=== PATIENT | female | born 1945 | race Caucasian/White ===

== ENCOUNTER 2017-09-13 05:19 | Observation (INO) | payer MEDICARE, MEDICAID ==
[2017-09-13 05:56] LABS: Bilirubin Negative (Negative); Blood, Urine Large (Negative); Glucose, Urine (Dipstick) >=1000 mg/dL (Negative); Ketone, Urine > or equal to 80 mg/dL (Negative); Nitrite Positive (Negative); Protein, Urine (Dipstick) 30 mg/dL (Neg-Trace); Urobilinogen 0.2 mg/dL (0.2-1.0)
[2017-09-13 05:59] LABS: Bacteria/HPF 2+ HPF (None Seen); Hyaline Casts/LPF 0-3 HYALINE CAST LPF (0-3 Hyaline); Squamous Epithelial 0-3 HPF (0-3)
[2017-09-13 06:06] LABS: Yeast-All Forms None Seen HPF (None Seen)
[2017-09-13 06:11] LABS: #Lymphocytes 0.9 thou/uL (1.20-3.40); #Monocytes 0.6 thou/uL (0.11-0.59); #Neutrophils 7.3 thou/uL (1.40-6.50); %Basophils 0.3 % (0.0-1.0); %Eosinophils 0.5 % (0.0-10.0); %Lymphocytes 10.5 % (21.0-51.0); %Monocytes 6.9 % (0.0-10.0); Mean Platelet Volume 7.7 fL (7.4-10.4); Red Blood Cell (RBC) Count 4.71 mill/uL (4.20-5.40); White Blood Cell (WBC) Count 8.9 thou/uL (4.8-10.8)
[2017-09-13] MEDS ORDERED: Ondansetron HCl/PF 4 MG/2 ML Vial ONE ×2 (06:30→14:12)
[2017-09-13 06:34] LABS: ALT (SGPT) 20 U/L (8-55); AST (SGOT) 18 U/L (5-34); Alkaline Phosphatase 100 U/L (40-150); Anion Gap 20 mmol/L (10-20); BUN (Urea Nitrogen) 5 mg/dL (9.8-20.1); Bilirubin, Total 1.4 mg/dL (0.2-1.2); Calc. Creatinine Clearance 0 mL/min (70-130); Calcium 9.2 mg/dL (7.8-10.44); Carbon Dioxide 20 mmol/L (23-31); Chloride 98 mmol/L (98-107); Estimated GFR-MDRD 69; Globulin 3.5 g/dL (2.4-3.5); Protein, Total 7.1 g/dL (6.0-8.3)
[2017-09-13] MEDS ORDERED: MEROPENEM 1 GM/50 ML 1 GM in Premix Bag 1 BAG IVPB SCH ×2 (06:45→15:00)
[2017-09-13] MEDS ORDERED: Ketorolac Tromethamine 30 MG/ML VIAL IVP PRN (08:24)
[2017-09-13] MEDS ORDERED: Acetaminophen 1,000 MG in Premix Bag 1 BAG IVPB PRN (08:25)
[2017-09-13] MEDS ORDERED: Ondansetron HCl/PF 4 MG/2 ML Vial IVP PRN ×2 (08:28→13:00)
[2017-09-13] MEDS ORDERED: Ondansetron ODT 4 MG TAB SL PRN (08:28)
[2017-09-13] MEDS ORDERED: Acetaminophen 325 MG TAB PO PRN (08:28)
[2017-09-13] MEDS ORDERED: Dextrose 50% Abboject 50 ML SYRINGE IVP PRN (08:29)
[2017-09-13] MEDS ORDERED: Dextrose 5% in Water 1,000 ML IV PRN (08:29)
[2017-09-13] MEDS ORDERED: Insulin Regular 300 UNITS/3 ML VIAL SC PRN (08:29)
[2017-09-13] MEDS ORDERED: 1/2 NS w/KCL 20 mEq 1,000 ML IV SCH (08:30)
[2017-09-13 09:48] VITALS: BMI 26.4
[2017-09-13] MEDS ORDERED: Lidocaine 2% Jelly 5 ML TUBE ONE (11:14)
[2017-09-13] MEDS ORDERED: Bupivacaine/Epinephrine 0.25% 30 ML VIAL ONE (11:14)
[2017-09-13] MEDS ORDERED: Fentanyl 100 MCG/2 ML VIAL ONE (11:47)
[2017-09-13] MEDS ORDERED: Lidocaine 1% w/Epinephrine 1:200K 30 ML VIAL ONE (12:31)
[2017-09-13] MEDS ORDERED: Bupivacaine PF 0.5% 30 ML VIAL ONE (12:31)
[2017-09-13] MEDS ORDERED: Promethazine HCl 25 MG/ML VIAL IM PRN (13:00)
[2017-09-13] MEDS ORDERED: Promethazine HCl 25 MG/ML VIAL SLOW IVP PRN (13:00)
--- NOTE | 2017-09-13 13:09 | HP ---
HISTORY OF PRESENT ILLNESS: Damaris Waller is a 71-year-old female who lives in [facility]. She is independently functional and does drive and she ambulates independently. She is wido wed. Patient self-diagnosed urolithiasis experiencing left flank pain. There is a family history fo r urolithiasis. She presents to the emergency room for evaluation and incident was noted to have a p erirectal abscess. She has never had such problems before. She has not had a colonoscopy for more t parrish 20 years. She denies any colon problems or change in bowel habits, blood in stools. She is admi tted for treatment of her perirectal abscess. ALLERGIES: The patient has multiple allergies, LIDOCAINE increased her heart rate, SULFA, results in rash, VANCOMYCIN decreased hearing. She lists acetaminophen as an allergy, but it resulted in nause a. She lists ampicillin which caused some facial swelling and she has avoided this. TOBACCO: None. ALCOHOL: None. MEDICATIONS: Phenergan p.r.n., insulin 10 units subcu daily, atenolol 25 mg daily. PAST MEDICAL HISTORY: Hemochromatosis, hiatal hernia, hypertension, diabetes mellitus type 2. PAST SURGICAL HISTORY: Total abdominal hysterectomy without oophorectomy, bladder slings x3, incisio nal hernias x3. She describes as a weakened rectus muscle [place], appendectomy in the past. REVIEW OF SYSTEMS: Ten point noncontributory, otherwise. PHYSICAL EXAMINATION: VITAL SIGNS: 5 foot 244 pounds, 98.2, 97, 130/73. HEENT: Unremarkable. LUNGS: Clear to auscultation: CARDIAC: Rhythm without murmur or gallop. ABDOMEN: Obese, soft, nontender. EXTREMITIES: Unremarkable. She has a perirectal abscess on the right, it is tender. There is sligh t redness. LABORATORY DATA: White count 8.9, hemoglobin 15. Basic metabolic profile was unremarkable. BUN 5, creatinine 0.82, glucose 372. ASSESSMENT AND PLAN: 1. Perirectal abscess. We will plan incision and drainage today. She can be discharged home postop eratively. She can follow up in the office on 09/18/2017 at 10:00 a.m. Tomorrow, she will move her packing from the wound and warm to hot baths and does not have to repack and she will keep a Kotex pa d and gauze dressing to control the drainage. She will wash it daily with soap and water and after e ach bowel movement. 2. She reports subjective urolithiasis, although there is no image to support this. Urinalysis reve als nitrites positive, bacteria 2+, cultures not submitted. We will plan discharge home on quinolone and Flagyl for 7 days due to her reported PENICILLIN allergy . She has received Ofirmev this hospitalization and Tylenol without incident and her listed allergy of acetaminophen is not a true allergy.
[2017-09-13] MEDS ORDERED: Polyethylene Glycol 3350 17 GM Packet PO PRN (13:28)
[2017-09-13] MEDS ORDERED: Acetaminophen 500 MG TAB PO PRN (13:28)
[2017-09-13] MEDS ORDERED: Ibuprofen 600 MG TAB PO PRN (13:28)
[2017-09-13] MEDS ORDERED: traMADol HCl 50 MG TAB PO PRN ×2 (13:28)
[2017-09-13 13:31] LABS: Bilirubin Negative (Negative); Blood, Urine Large (Negative); Glucose, Urine (Dipstick) >=1000 mg/dL (Negative); Ketone, Urine > or equal to 80 mg/dL (Negative); Nitrite Negative (Negative); Protein, Urine (Dipstick) 30 mg/dL (Neg-Trace); Urobilinogen 0.2 mg/dL (0.2-1.0)
[2017-09-13 13:33] LABS: Bacteria/HPF None Seen HPF (None Seen); Hyaline Casts/LPF 0-3 HYALINE CAST LPF (0-3 Hyaline); RBC/HPF GREATER THAN 50-TNTC HPF (0-3); Squamous Epithelial 0-3 HPF (0-3)
[2017-09-13 13:54] VITALS: TEMP 98.7
[2017-09-13] MEDS ORDERED: Propofol 200 MG/20 ML VIAL ONE (14:12)
[2017-09-13] MEDS ORDERED: Glycopyrrolate 0.2 MG/ML 5 ML SYRINGE ONE (14:12)
[2017-09-13] MEDS ORDERED: metroNIDAZOLE 500 MG TAB PO SCH (15:00)
--- NOTE | 2017-09-13 15:35 | OP ---
DATE OF PROCEDURE: 09/13/2017 PREOPERATIVE DIAGNOSES: Right perirectal abscess, diabetes mellitus type 2, abnormal urinalysis sugg esting urinary tract infection. Urinalysis obtained in the emergency room. Urine culture is not sub mitted. POSTOPERATIVE DIAGNOSES: Right perirectal abscess, diabetes mellitus type 2, abnormal urinalysis sug gesting urinary tract infection. Urinalysis obtained in the emergency room. Urine culture is not acosta bmitted. PROCEDURE: Incision and drainage of right perirectal abscess with in and out straight cath. Urine f or C&S submitted from the OR. SURGEON: Dr. Robson Bailey. ANESTHESIA: General. Local 0.5% Marcaine without epinephrine 30 mL, mixed with 1% Xylocaine with ep inephrine 30 mL, 20 mL mixture used. PROCEDURE IN DETAIL: Patient was taken to the operating room where under general anesthesia in the d orsal lithotomy position, perianal area was prepared with Betadine. In and out catheterization of th e bladder performed and urine culture submitted. Local anesthetic infiltrated into skin and subcutan eous tissue about the right perirectal abscess and incision and drainage performed, evacuating purule nt material and debriding skin and soft tissues. Wound packed open and gauze dressing applied, secur ed with Medipore. Patient tolerated the procedure well without complications, transferred to the rec overy room in stable condition. She will be discharged home today and we will follow up in my office this week.
[2017-09-13 16:24] VITALS: BP 127/70
--- NOTE | 2017-09-13 17:24 | DIS ---
DATE OF ADMISSION: 09/12/2017 DATE OF DISCHARGE: 09/13/2017 DISCHARGE DIAGNOSES: Right perirectal abscess, urinary tract infection, urine culture straight rosie terization pending, multiple allergies, diabetes mellitus type 2, obesity, metabolic syndrome, hypert ension, hemochromatosis, cystocele, rectocele. HOSPITAL COURSE: The patient was seen in the emergency room for left flank pain, incidentally noted to have a perirectal abscess. She was admitted for that with intravenous antibiotics. She was taken to the operating room where incision and drainage performed and wound packed open. Urine culture ob tained straight catheterization intraoperatively. Postoperatively, she is discharged home with instr uctions to remove the packing tomorrow morning, Friday and a warm to hot bath and wash the wound with soap and water daily and after bowel movements. She does not need to repack it. She will use a Rayo ex pad or gauze dressings for any drainage. She has an appointment to see me later in the week. She is sent home to resume her home medications, in addition to, take [id number] Tylenol and Motri n for discomfort. She was given Ultram 20 with 2 refills for breakthrough pain. She was sent home w olu Cipro and Flagyl for 5 days. We will check urine cultures in the office.
[2017-09-13] MEDS ORDERED: Ciprofloxacin 500 MG TAB PO SCH (20:00)
[2017-09-14] MEDS ORDERED: Insulin Regular 300 UNITS/3 ML VIAL SC SCH (09:00)
[2017-09-14] MEDS ORDERED: Atenolol 25 MG TAB PO SCH (09:00)
== END 2017-09-13 19:06 | disposition home or self-care (01) ==
LOC: ERS 05:19 → SURG A 08:07
PROVIDERS: ADMIT Specialist; ATTEND Specialist
PROC: 0D9P0ZZ Drainage of Rectum, Open Approach (ICD-10-PCS; principal; 2017-09-13)
PROC: 0T9B70Z Drainage of Bladder with Drainage Device, Via Natural or Artificial Opening (ICD-10-PCS; 2017-09-13)
DX: K61.1 Rectal abscess (principal); N39.0 Urinary tract infection, site not specified; E11.9 Type 2 diabetes mellitus without complications; I10 Essential (primary) hypertension; E83.119 Hemochromatosis, unspecified; E88.81 Metabolic syndrome and other insulin resistance; N81.10 Cystocele, unspecified; N81.6 Rectocele; E66.9 Obesity, unspecified; Z68.26 Body mass index [BMI] 26.0-26.9, adult; Z88.2 Allergy status to sulfonamides; Z88.0 Allergy status to penicillin; Z88.8 Allergy status to other drugs, medicaments and biological substances; Z88.1 Allergy status to other antibiotic agents; Z88.5 Allergy status to narcotic agent; Z91.041 Radiographic dye allergy status; Z79.4 Long term (current) use of insulin; Z79.899 Other long term (current) drug therapy; Z90.710 Acquired absence of both cervix and uterus; Z98.890 Other specified postprocedural states
CPT/HCPCS: 36415; 36416; 80053; 81003; 81015; 85025; 87040; 87077; 87086; 87186; 93005; 96361; 96365; 96375; J0696; J2405; J2704; J3010; S0020

== ENCOUNTER 2017-10-31 09:11 | Outpatient (CLI) | payer MEDICARE, MEDICAID ==
[2017-10-31 10:01] LABS: Anion Gap 11 mmol/L (10-20); BUN (Urea Nitrogen) 11 mg/dL (9.8-20.1); Calc. Creatinine Clearance 0 mL/min (70-130); Calcium 10.2 mg/dL (7.8-10.44); Carbon Dioxide 30 mmol/L (23-31); Chloride 95 mmol/L (98-107); Estimated GFR-MDRD 63; Glucose 470 mg/dL (83-110); Potassium 4.3 mmol/L (3.5-5.1); Sodium 132 mmol/L (136-145)
--- NOTE | 2017-10-31 10:52 | CT ---
CT ABDOMEN AND PELVIS WITHOUT CONTRAST: HISTORY: Bilateral flank pain, hematuria, UTIs. FINDINGS: Absence of oral and IV contrast reduces the sensitivity of the exam, particularly for evaluation of s olid organs involved. The lung bases are clear. A moderate-sized hiatal hernia is present. There is increased attenuation of the liver compared to the spleen measuring 79 Hounsfield units. No calcified gallstones are seen . No free air or free fluid is noted in the abdomen or pelvis. There is a 3 mm calculus in the central portions of the inferior aspect of the left kidney. No calcu li are seen in the right kidney, either ureter, or the urinary bladder. No hydroureteral nephrosis i s seen on either side. There is an 8 mm cyst in the superior pole of the right kidney. There is thi ckening of the wall of the urinary bladder. The right-sided bladder diverticulum is present. There are postop changes of appendectomy and hysterectomy. There are vascular calcifications without evidence of aneurysmal dilatation of the abdominal aorta. There are degenerative changes in the spi ne. IMPRESSION: 1. Nonobstructing left renal calculi. 2. Right renal cyst. 3. Urinary bladder wall thickening and urinary bladder diverticulum. 4. Diffusely increased attenuation of the liver. Differential diagnosis includes deposition of meta ls (iron, copper), glycogen storage disorders, medications such as Amiodarone. POS: DANIEL
== END 2017-10-31 09:12 | disposition home or self-care (01) ==
LOC: CT 09:11
PROVIDERS: ATTEND Urology
DX: Z87.440 Personal history of urinary (tract) infections (principal); Z84.1 Family history of disorders of kidney and ureter; N20.0 Calculus of kidney; N28.1 Cyst of kidney, acquired; N32.3 Diverticulum of bladder; N32.89 Other specified disorders of bladder; K76.89 Other specified diseases of liver
CPT/HCPCS: 74176; 80048

== ENCOUNTER 2019-03-22 09:03 | Outpatient (CLI) | payer MEDICARE, MEDICAID ==
--- NOTE | 2019-03-22 12:02 | RAD ---
PA AND LATERAL VIEWS CHEST: HISTORY: Weight loss. FINDINGS: The heart size is normal. The aorta is tortuous. There is a moderate-sized hiatal hernia. The lung s are expanded without lobar consolidation, pneumothoraces, or pleural effusions. Bones are osteopen ic. There are degenerative changes in the spine. IMPRESSION: 1. No radiographic evidence of acute cardiopulmonary process. 2. Hiatal hernia. POS: OFF
== END 2019-03-22 09:04 | disposition home or self-care (01) ==
LOC: CT 09:03
PROVIDERS: ATTEND Internal Medicine Infectious Disease
DX: M25.50 Pain in unspecified joint (principal); R63.4 Abnormal weight loss; R81 Glycosuria; R80.8 Other proteinuria; Z87.440 Personal history of urinary (tract) infections; K44.9 Diaphragmatic hernia without obstruction or gangrene
CPT/HCPCS: 36415; 71046; 80053; 81001; 82607; 82746; 83520; 84439; 84443; 86038; 86200; 86225; 86803; 87077; 87086; 87186

== ENCOUNTER 2021-02-08 04:26 | Inpatient (IN) | payer MEDICARE, MEDICAID ==
[2021-02-08] MEDS ORDERED: Promethazine HCl 25 MG/ML VIAL ONE (05:11)
[2021-02-08 05:39] LABS: #Eosinphils 0.1 thou/uL (0.0-0.7); #Lymphocytes 0.8 thou/uL (1.20-3.40); #Neutrophils 6.6 thou/uL (1.40-6.50); %Basophils 0.4 % (0.0-1.0); %Eosinophils 1.3 % (0.0-10.0); %Lymphocytes 9.4 % (21.0-51.0); %Monocytes 11.2 % (0.0-10.0); %Neutrophils 77.6 % (42.0-75.0); Hemoglobin 11.3 g/dL (12.0-16.0); Mean Corpuscular HGB CONC 34.7 g/dL (32.0-36.0); Mean Corpuscular Hemoglobin 31.3 pg (27.0-31.0); Mean Corpuscular Volume 90.4 fL (78.0-98.0); Mean Platelet Volume 7.2 fL (7.4-10.4); Platelet Count 214 thou/uL (130-400); RBC Distribution Width 11.6 % (11.5-14.5); Red Blood Cell (RBC) Count 3.61 mill/uL (4.20-5.40); White Blood Cell (WBC) Count 8.5 thou/uL (4.8-10.8)
[2021-02-08 05:59] LABS: Acetaminophen Less than 6.0 mcg/mL (10.0-30.0); Alcohol Less than 10 mg/dL (Less than 10); Salicylate Less than 8.0 mg/dL (15.0-30.0)
[2021-02-08 06:01] LABS: ALT (SGPT) 8 U/L (8-55); AST (SGOT) 11 U/L (5-34); Albumin 2.9 g/dL (3.4-4.8); Alkaline Phosphatase 89 U/L (40-110); Anion Gap 18 mmol/L (10-20); BUN (Urea Nitrogen) 62 mg/dL (9.8-20.1); Bilirubin, Total 0.7 mg/dL (0.2-1.2); Calc. Creatinine Clearance 0 mL/min (70-130); Calcium 8.6 mg/dL (7.8-10.44); Carbon Dioxide 17 mmol/L (23-31); Chloride 99 mmol/L (98-107); Globulin 3.2 g/dL (2.4-3.5); Glucose 288 mg/dL (83-110); Lipase 16 U/L (8-78); Potassium 4.2 mmol/L (3.5-5.1); Protein, Total 6.1 g/dL (5.8-8.1); Sodium 130 mmol/L (136-145)
[2021-02-08 06:18] LABS: Bacteria/HPF 4+ HPF (None Seen); Bilirubin Negative (Negative); Blood, Urine 2+ (Negative); Clarity Extra Turbid (Clear); Glucose, Urine (Dipstick) 30 mg/dL (Negative); Ketone, Urine 10 mg/dL (Negative); Leukocyte 500 Leu/uL (Negative); Nitrite Negative (Negative); Protein, Urine (Dipstick) 50 mg/dL (Neg-Trace); RBC/HPF None Seen HPF (0-3); Specific Gravity, Urine 1.013 (1.002-1.036); Squamous Epithelial None Seen HPF (0-3); Urobilinogen Normal mg/dL (Less than 2); WBC/HPF 21-50 HPF (0-3); Yeast-Budding 2+ HPF (None Seen)
[2021-02-08 06:20] LABS: Amphetamine Not Detected (NotDetected); Barbiturates Screen Not Detected (NotDetected); Benzodiazepine Screen Not Detected (NotDetected); Cocaine Metabolite Screen Not Detected (NotDetected); Medtox Control Line Valid? VALID (VALID); Medtox Reader # READER 4; Methadone Not Detected (NotDetected); Methamphetamine Not Detected (NotDetected); Opiate Screen Not Detected (NotDetected); Oxycodone Screen Not Detected (NotDetected); Phencyclidine (PCP) Not Detected (NotDetected); THC/Cannabinoid Screen Not Detected (NotDetected); Tricyclic Screen Not Detected (NotDetected)
[2021-02-08] MEDS ORDERED: cefTRIAXone\\ROCEPHIN 2 GM VIAL ONE (06:31)
[2021-02-08 06:59] LABS: Actual Bicarbonate (HCO3v) 18 mEq/L (22-28); Analyzer IN Cardio ER; Calcium, Ionized (venous) 1.16 mmol/L (1.16-1.32); Chloride (VBG) 98 mmol/L (98-106); Hemoglobin (Hb) 12.2 g/dL (11.7-16.1); Potassium (VBG) 4.82 mmol/L (3.70-5.30); Sodium 128.8 mmol/L (133-146); pH (venous) 7.39 (7.32-7.43)
[2021-02-08] MEDS ORDERED: Dextrose 50% Abboject 50 ML SYRINGE SLOW IVP PRN (08:49)
[2021-02-08] MEDS ORDERED: Dextrose 5% in Water 1,000 ML IV PRN (08:49)
[2021-02-08] MEDS ORDERED: HumaLOG 300 UNITS/3 ML VIAL SC PRN (08:54)
[2021-02-08 09:16] LABS: Hemoglobin A1c 13.3 % (4.0-6.0)
[2021-02-08 11:53] VITALS: BMI 20.9
[2021-02-08] MEDS ORDERED: Acetaminophen 325 MG TAB PO PRN (12:05)
[2021-02-08] MEDS: Promethazine 25 MG TAB PO PRN ×2 (12:27→18:13)
[2021-02-08] MEDS: Enoxaparin Sodium 30 MG/0.3 ML SYRINGE SC SCH (12:30)
[2021-02-08] MEDS: Insulin Regular 300 UNITS/3 ML VIAL SC PRN ×3 (12:47→22:36)
[2021-02-08] MEDS: Gabapentin 100 MG CAP PO SCH (15:49)
[2021-02-08] MEDS ORDERED: Polyethylene Glycol 3350 17 GM Packet PO SCH (21:00)
[2021-02-09 01:48] LABS: SARS-CoV-2 PCR by NAA Not Detected (NotDetected)
[2021-02-09] MEDS: Promethazine 25 MG TAB PO PRN (05:44)
[2021-02-09 05:49] LABS: Anion Gap 22 mmol/L (10-20); BUN (Urea Nitrogen) 57 mg/dL (9.8-20.1); Calc. Creatinine Clearance 33 mL/min (70-130); Calcium 9.5 mg/dL (7.8-10.44); Carbon Dioxide 13 mmol/L (23-31); Chloride 105 mmol/L (98-107); Glucose 366 mg/dL (83-110); Potassium 4.9 mmol/L (3.5-5.1); Sodium 135 mmol/L (136-145)
[2021-02-09] MEDS: Ondansetron PF 4 MG/2 ML Vial IVP PRN ×3 (06:30→18:16)
[2021-02-09] MEDS: Insulin Regular 300 UNITS/3 ML VIAL SC PRN ×4 (06:38→21:06)
[2021-02-09] MEDS ORDERED: Promethazine 25 MG TAB PO PRN (08:09)
[2021-02-09] MEDS: Enoxaparin Sodium 30 MG/0.3 ML SYRINGE SC SCH (09:31)
[2021-02-09] MEDS: Gabapentin 100 MG CAP PO SCH ×2 (09:35→21:55)
[2021-02-09] MEDS: Aspirin 81 mg Enteric Coated Tablet PO SCH (09:37)
[2021-02-09] MEDS: Lantus 1000 UNITS/10 ML VIAL SC SCH (12:30)
[2021-02-09] MEDS ORDERED: Promethazine HCl 25 MG/ML VIAL IM PRN (13:38)
[2021-02-09] MEDS: Promethazine HCl 12.5 MG in Sodium Chloride 0.9% 50 ML IVPB PRN ×2 (14:46→20:56)
[2021-02-09] MEDS: Pantoprazole 40 MG VIAL IVP SCH (21:54)
[2021-02-09] MEDS: Polyethylene Glycol 3350 17 GM Packet PO SCH ×2 (21:57→22:12)
[2021-02-09] MEDS ORDERED: Dextrose 5% in Water 1,000 ML IV PRN (23:36)
[2021-02-09] MEDS ORDERED: Dextrose 50% Abboject 50 ML SYRINGE SLOW IVP PRN (23:36)
[2021-02-10 00:08] LABS: Actual Bicarbonate (HCO3a) 19.5 mEq/L (22-28); Base Excess (BEa) -3.7 mEq/L (-2.0 to +3.0); CO2 Tension 29.9 mmHg (35.0-45.0); Calcium, Ionized (arterial) 1.28 mmol/L (1.12-1.30); Carboxyhemoglobin (COHb) 0.3 gm% (0.0-3.0); Hemoglobin (Hb) 11.6 g/dL (12.0-16.0); O2 Tension (PaO2), arterial 93.2 mmHg (> 70.0); Potassium - ABG Lab 4.16 mmol/L (3.70-5.30); pH, Arterial 7.43 (7.35-7.45)
[2021-02-10 00:13] LABS: ALV-art Gradient 19.155 mmHg (0-20); Puncture Site LRA
[2021-02-10 00:30] LABS: ALT (SGPT) Less than 7 U/L (8-55); AST (SGOT) 10 U/L (5-34); Albumin 2.8 g/dL (3.4-4.8); Alkaline Phosphatase 85 U/L (40-110); Anion Gap 15 mmol/L (10-20); BUN (Urea Nitrogen) 72 mg/dL (9.8-20.1); Bilirubin, Total 0.4 mg/dL (0.2-1.2); Calc. Creatinine Clearance 19 mL/min (70-130); Calcium 9.4 mg/dL (7.8-10.44); Carbon Dioxide 18 mmol/L (23-31); Chloride 107 mmol/L (98-107); Globulin 3.6 g/dL (2.4-3.5); Glucose 268 mg/dL (83-110); Potassium 4.3 mmol/L (3.5-5.1); Protein, Total 6.4 g/dL (5.8-8.1); Sodium 136 mmol/L (136-145)
[2021-02-10] MEDS ORDERED: HumaLOG 300 UNITS/3 ML VIAL SC PRN (00:30)
[2021-02-10] MEDS: Insulin Regular 300 UNITS/3 ML VIAL SC PRN ×3 (01:08→21:24)
[2021-02-10 06:17] LABS: Anion Gap 14 mmol/L (10-20); BUN (Urea Nitrogen) 68 mg/dL (9.8-20.1); Calc. Creatinine Clearance 18 mL/min (70-130); Calcium 9.8 mg/dL (7.8-10.44); Carbon Dioxide 20 mmol/L (23-31); Chloride 106 mmol/L (98-107); Glucose 193 mg/dL (83-110); Iron 31 ug/dL (50-170); Iron Binding Capacity, Total 158 mcg/dL (265-497); Potassium 3.7 mmol/L (3.5-5.1); Sodium 136 mmol/L (136-145)
[2021-02-10] MEDS: Sodium Chloride 0.9% (PF) 10 ML VIAL FS PRN (09:27)
[2021-02-10] MEDS: Pantoprazole 40 MG VIAL IVP SCH ×2 (09:27→21:21)
[2021-02-10] MEDS: Lantus 1000 UNITS/10 ML VIAL SC SCH (09:34)
[2021-02-10] MEDS: Aspirin 81 mg Enteric Coated Tablet PO SCH ×2 (09:34→13:02)
[2021-02-10] MEDS ORDERED: Lactated Ringer's 500 ML IV SCH (10:45)
[2021-02-10] MEDS ORDERED: PROPOFOL 200 MG/20 ML VIAL ONE (11:41)
[2021-02-10] MEDS: Gabapentin 100 MG CAP PO SCH ×2 (13:01→21:21)
[2021-02-10] MEDS: Lactated Ringer's 1,000 ML IV SCH ×2 (13:08)
[2021-02-10] MEDS: Polyethylene Glycol 3350 17 GM Packet PO SCH (21:23)
[2021-02-11] MEDS: Ondansetron PF 4 MG/2 ML Vial IVP PRN ×2 (04:17→19:55)
[2021-02-11] MEDS: Insulin Regular 300 UNITS/3 ML VIAL SC PRN ×5 (06:34→20:05)
[2021-02-11 06:43] LABS: Anion Gap 13 mmol/L (10-20); BUN (Urea Nitrogen) 36 mg/dL (9.8-20.1); Calc. Creatinine Clearance 49 mL/min (70-130); Calcium 9.2 mg/dL (7.8-10.44); Carbon Dioxide 22 mmol/L (23-31); Chloride 109 mmol/L (98-107); Glucose 287 mg/dL (83-110); Potassium 4.1 mmol/L (3.5-5.1); Sodium 140 mmol/L (136-145)
[2021-02-11] MEDS: Gabapentin 100 MG CAP PO SCH ×3 (09:09→20:02)
[2021-02-11] MEDS: Sodium Chloride 0.9% (PF) 10 ML VIAL FS PRN (09:09)
[2021-02-11] MEDS: Pantoprazole 40 MG VIAL IVP SCH ×2 (09:09→19:56)
[2021-02-11] MEDS: Aspirin 81 mg Enteric Coated Tablet PO SCH (09:11)
[2021-02-11] MEDS: Lantus 1000 UNITS/10 ML VIAL SC SCH (09:12)
[2021-02-11] MEDS: Enoxaparin Sodium 30 MG/0.3 ML SYRINGE SC SCH (09:24)
[2021-02-11] MEDS ORDERED: Magnesium Citrate 300 ML BOT PO SCH (12:30)
[2021-02-11] MEDS ORDERED: Polyethylene Glycol 3350 17 GM Packet PO SCH (12:30)
[2021-02-11] MEDS: Polyethylene Glycol 3350 17 GM Packet PO SCH (19:55)
[2021-02-12] MEDS: Insulin Regular 300 UNITS/3 ML VIAL SC PRN ×3 (06:31→21:35)
[2021-02-12 07:18] LABS: Anion Gap 11 mmol/L (10-20); BUN (Urea Nitrogen) 20 mg/dL (9.8-20.1); Calc. Creatinine Clearance 57 mL/min (70-130); Calcium 8.5 mg/dL (7.8-10.44); Carbon Dioxide 27 mmol/L (23-31); Chloride 104 mmol/L (98-107); Glucose 329 mg/dL (83-110); Potassium 4.6 mmol/L (3.5-5.1); Sodium 137 mmol/L (136-145)
[2021-02-12] MEDS: Gabapentin 100 MG CAP PO SCH ×3 (08:57→21:34)
[2021-02-12] MEDS: Aspirin 81 mg Enteric Coated Tablet PO SCH (08:57)
[2021-02-12] MEDS: Enoxaparin Sodium 30 MG/0.3 ML SYRINGE SC SCH (08:59)
[2021-02-12] MEDS: Polyethylene Glycol 3350 17 GM Packet PO SCH ×2 (08:59→21:35)
[2021-02-12] MEDS ORDERED: Lantus 1000 UNITS/10 ML VIAL SC SCH (09:00)
[2021-02-13] MEDS: Gabapentin 100 MG CAP PO SCH (05:55)
[2021-02-13] MEDS: Insulin Regular 300 UNITS/3 ML VIAL SC PRN ×3 (05:56→20:22)
[2021-02-13 07:12] LABS: Anion Gap 11 mmol/L (10-20); BUN (Urea Nitrogen) 10 mg/dL (9.8-20.1); Calc. Creatinine Clearance 58 mL/min (70-130); Calcium 8.5 mg/dL (7.8-10.44); Carbon Dioxide 26 mmol/L (23-31); Chloride 101 mmol/L (98-107); Glucose 298 mg/dL (83-110); Potassium 4.1 mmol/L (3.5-5.1); Sodium 134 mmol/L (136-145)
[2021-02-13] MEDS ORDERED: Enoxaparin Sodium 30 MG/0.3 ML SYRINGE SC SCH (08:16)
[2021-02-13] MEDS ORDERED: Gabapentin 100 MG CAP PO SCH (08:17)
[2021-02-13] MEDS: Aspirin 81 mg Enteric Coated Tablet PO SCH (08:52)
[2021-02-13] MEDS: Polyethylene Glycol 3350 17 GM Packet PO SCH ×2 (08:53→20:15)
[2021-02-13] MEDS ORDERED: Lantus 1000 UNITS/10 ML VIAL SC SCH (09:00)
[2021-02-13] MEDS: Gabapentin 300 MG CAP PO SCH ×3 (09:01→20:13)
[2021-02-13] MEDS: Enoxaparin Sodium 40 MG/0.4 ML SYRINGE SC SCH (09:02)
[2021-02-14] MEDS ORDERED: Fleet Enema 133 ML BOT PR SCH (07:00)
[2021-02-14 07:56] LABS: Anion Gap 11 mmol/L (10-20); BUN (Urea Nitrogen) 8 mg/dL (9.8-20.1); Calc. Creatinine Clearance 56 mL/min (70-130); Calcium 8.7 mg/dL (7.8-10.44); Carbon Dioxide 26 mmol/L (23-31); Chloride 101 mmol/L (98-107); Glucose 255 mg/dL (83-110); Potassium 3.9 mmol/L (3.5-5.1); Sodium 134 mmol/L (136-145)
[2021-02-14] MEDS: Aspirin 81 mg Enteric Coated Tablet PO SCH (08:54)
[2021-02-14] MEDS: Enoxaparin Sodium 40 MG/0.4 ML SYRINGE SC SCH (08:54)
[2021-02-14] MEDS: Polyethylene Glycol 3350 17 GM Packet PO SCH (08:55)
[2021-02-14] MEDS: Gabapentin 300 MG CAP PO SCH ×2 (08:56→14:59)
[2021-02-14] MEDS ORDERED: Lantus 1000 UNITS/10 ML VIAL SC SCH (09:00)
[2021-02-14] MEDS: Insulin Regular 300 UNITS/3 ML VIAL SC PRN ×2 (13:42→18:38)
[2021-02-14 19:31] VITALS: BP 110/70; TEMP 98.3
== END 2021-02-14 20:20 | disposition home health service (06) | DRG 682 ==
LOC: ERS 04:26 → ERHOLD 08:13 → T4-B 11:16
PROVIDERS: ADMIT Family Medicine; ATTEND Family Medicine
PROC: 0D748ZZ Dilation of Esophagogastric Junction, Via Natural or Artificial Opening Endoscopic (ICD-10-PCS; principal; 2021-02-10)
PROC: 0T9B70Z Drainage of Bladder with Drainage Device, Via Natural or Artificial Opening (ICD-10-PCS; 2021-02-11)
DX: N17.9 Acute kidney failure, unspecified (principal); E43 Unspecified severe protein-calorie malnutrition; Z20.822 Contact with and (suspected) exposure to COVID-19; R32 Unspecified urinary incontinence; E10.9 Type 1 diabetes mellitus without complications; N81.2 Incomplete uterovaginal prolapse; N18.9 Chronic kidney disease, unspecified; R82.71 Bacteriuria; E10.22 Type 1 diabetes mellitus with diabetic chronic kidney disease; E10.40 Type 1 diabetes mellitus with diabetic neuropathy, unspecified; E10.65 Type 1 diabetes mellitus with hyperglycemia; R13.10 Dysphagia, unspecified; K22.2 Esophageal obstruction; K44.9 Diaphragmatic hernia without obstruction or gangrene; I10 Essential (primary) hypertension; R33.9 Retention of urine, unspecified; E83.110 Hereditary hemochromatosis; Z88.2 Allergy status to sulfonamides; Z90.710 Acquired absence of both cervix and uterus; Z68.20 Body mass index [BMI] 20.0-20.9, adult; Z88.1 Allergy status to other antibiotic agents; Z88.8 Allergy status to other drugs, medicaments and biological substances; Z88.5 Allergy status to narcotic agent; Z90.49 Acquired absence of other specified parts of digestive tract; Z98.890 Other specified postprocedural states; Z79.82 Long term (current) use of aspirin; Z79.899 Other long term (current) drug therapy; Z79.4 Long term (current) use of insulin; K59.00 Constipation, unspecified
CPT/HCPCS: 36415; 36416; 36600; 51701; 80048; 80053; 80306; 80307; 81003; 81015; 82010; 82728; 82805; 83036; 83540; 83550; 83605; 83690; 85025; 87040; 87086; 87635; 93005; 94760; 96365; 96367; C9113; J0696; J1650; J1815; J2405; J2550; J2704; Q0169; U0003; U0005

== ENCOUNTER 2021-03-03 22:47 | Inpatient (IN) | payer MEDICARE, MEDICAID ==
[2021-03-03 23:20] LABS: #Eosinphils 0.1 thou/uL (0.0-0.7); #Lymphocytes 0.6 thou/uL (1.20-3.40); #Monocytes 0.7 thou/uL (0.11-0.59); #Neutrophils 4.6 thou/uL (1.40-6.50); %Basophils 0.7 % (0.0-1.0); %Eosinophils 1.4 % (0.0-10.0); %Lymphocytes 9.8 % (21.0-51.0); %Monocytes 11.5 % (0.0-10.0); %Neutrophils 76.6 % (42.0-75.0); Hemoglobin 10.3 g/dL (12.0-16.0); Mean Corpuscular HGB CONC 34.5 g/dL (32.0-36.0); Mean Platelet Volume 6.6 fL (7.4-10.4); Platelet Count 298 thou/uL (130-400); RBC Distribution Width 13.7 % (11.5-14.5); Red Blood Cell (RBC) Count 3.32 mill/uL (4.20-5.40); White Blood Cell (WBC) Count 6.1 thou/uL (4.8-10.8)
[2021-03-03] MEDS ORDERED: Ibuprofen 200 MG TAB ONE (23:22)
[2021-03-03 23:30] LABS: ALT (SGPT) 10 U/L (8-55); AST (SGOT) 25 U/L (5-34); Albumin 2.9 g/dL (3.4-4.8); Alkaline Phosphatase 79 U/L (40-110); Anion Gap 14 mmol/L (10-20); BUN (Urea Nitrogen) 20 mg/dL (9.8-20.1); Bilirubin, Total 0.6 mg/dL (0.2-1.2); Calc. Creatinine Clearance 0 mL/min (70-130); Calcium 8.9 mg/dL (7.8-10.44); Carbon Dioxide 23 mmol/L (23-31); Chloride 100 mmol/L (98-107); Globulin 4.2 g/dL (2.4-3.5); Glucose 128 mg/dL (83-110); Potassium 4.8 mmol/L (3.5-5.1); Protein, Total 7.1 g/dL (5.8-8.1); Sodium 132 mmol/L (136-145)
[2021-03-04 00:20] LABS: Bilirubin Negative (Negative); Blood, Urine Trace (Negative); Glucose, Urine (Dipstick) Negative (Negative); Ketone, Urine Negative (Negative); Leukocyte Large (Negative); Nitrite Negative (Negative); Protein, Urine (Dipstick) Negative (Neg-Trace); Urobilinogen 0.2 mg/dL (Less than 2)
[2021-03-04 00:21] LABS: Clarity Clear (Clear)
[2021-03-04 00:27] LABS: Bacteria/HPF 1+ HPF (None Seen); Squamous Epithelial None Seen HPF (0-3); WBC/HPF 21-50 HPF (0-3)
[2021-03-04] MEDS ORDERED: cefTRIAXone\\ROCEPHIN 1 GM VIAL ONE (00:54)
[2021-03-04] MEDS ORDERED: Dextrose 5% in Water 1,000 ML IV PRN (01:04)
[2021-03-04] MEDS ORDERED: Dextrose 50% Abboject 50 ML SYRINGE SLOW IVP PRN (01:04)
[2021-03-04] MEDS ORDERED: HumaLOG 300 UNITS/3 ML VIAL SC PRN (01:04)
[2021-03-04] MEDS ORDERED: Ondansetron ODT 4 MG TAB PO PRN ×2 (01:04→01:38)
[2021-03-04] MEDS ORDERED: Promethazine 25 MG TAB PO PRN (01:38)
[2021-03-04] MEDS ORDERED: Sodium Chloride 0.9% 1,000 ML IV SCH (02:15)
[2021-03-04 03:48] VITALS: BMI 25.0
[2021-03-04 06:20] LABS: SARS-CoV-2 NAA Rapid Test Not Detected (NotDetected)
[2021-03-04 06:41] LABS: Anion Gap 12 mmol/L (10-20); BUN (Urea Nitrogen) 20 mg/dL (9.8-20.1); Calc. Creatinine Clearance 48 mL/min (70-130); Carbon Dioxide 24 mmol/L (23-31); Chloride 105 mmol/L (98-107); Glucose 158 mg/dL (83-110); Potassium 4.3 mmol/L (3.5-5.1); Sodium 137 mmol/L (136-145)
[2021-03-04] MEDS: Aspirin 81 mg Enteric Coated Tablet PO SCH (08:01)
[2021-03-04] MEDS: Polyethylene Glycol 3350 17 GM Packet PO SCH ×2 (08:01→21:20)
[2021-03-04] MEDS: Enoxaparin Sodium 40 MG/0.4 ML SYRINGE SC SCH (08:02)
[2021-03-04] MEDS: Lantus 1000 UNITS/10 ML VIAL SC SCH (08:04)
[2021-03-04] MEDS: HumaLOG 300 UNITS/3 ML VIAL SC PRN (12:15)
[2021-03-04] MEDS: Gabapentin 100 MG CAP PO SCH (14:57)
[2021-03-04] MEDS ORDERED: Nitrofurantoin Monohyd/M-Cryst 100 MG CAP PO SCH (17:00)
[2021-03-04] MEDS: Ibuprofen 200 MG TAB PO PRN (17:27)
[2021-03-04] MEDS ORDERED: Gabapentin 300 MG CAP PO SCH (21:00)
[2021-03-05] MEDS ORDERED: cefTRIAXone\\ROCEPHIN 1 GM in Sodium Chloride 0.9% 100 ML IVPB SCH (01:00)
[2021-03-05] MEDS: Ibuprofen 200 MG TAB PO PRN (02:04)
[2021-03-05 08:25] LABS: #Eosinphils 0.3 thou/uL (0.0-0.7); #Monocytes 0.6 thou/uL (0.11-0.59); #Neutrophils 3.4 thou/uL (1.40-6.50); %Basophils 0.8 % (0.0-1.0); %Eosinophils 5.3 % (0.0-10.0); %Lymphocytes 18.6 % (21.0-51.0); %Monocytes 11.4 % (0.0-10.0); %Neutrophils 63.9 % (42.0-75.0); Hemoglobin 9.1 g/dL (12.0-16.0); Mean Corpuscular HGB CONC 35.4 g/dL (32.0-36.0); Mean Corpuscular Hemoglobin 32.2 pg (27.0-31.0); Mean Corpuscular Volume 90.8 fL (78.0-98.0); Mean Platelet Volume 6.2 fL (7.4-10.4); Platelet Count 284 thou/uL (130-400); RBC Distribution Width 13.7 % (11.5-14.5); Red Blood Cell (RBC) Count 2.82 mill/uL (4.20-5.40); White Blood Cell (WBC) Count 5.3 thou/uL (4.8-10.8)
[2021-03-05 08:41] LABS: Anion Gap 10 mmol/L (10-20); BUN (Urea Nitrogen) 11 mg/dL (9.8-20.1); Calc. Creatinine Clearance 63 mL/min (70-130); Calcium 8.6 mg/dL (7.8-10.44); Carbon Dioxide 27 mmol/L (23-31); Chloride 105 mmol/L (98-107); Glucose 125 mg/dL (83-110); Potassium 3.9 mmol/L (3.5-5.1); Sodium 138 mmol/L (136-145)
[2021-03-05] MEDS: Enoxaparin Sodium 40 MG/0.4 ML SYRINGE SC SCH (10:25)
[2021-03-05] MEDS: Gabapentin 100 MG CAP PO SCH (10:27)
[2021-03-05] MEDS: Aspirin 81 mg Enteric Coated Tablet PO SCH (10:27)
[2021-03-05] MEDS: Lantus 1000 UNITS/10 ML VIAL SC SCH (10:28)
[2021-03-05] MEDS: Polyethylene Glycol 3350 17 GM Packet PO SCH (10:38)
[2021-03-05] MEDS: HumaLOG 300 UNITS/3 ML VIAL SC PRN (13:07)
[2021-03-05 17:18] VITALS: BP 153/88; TEMP 98.1
== END 2021-03-05 15:58 | disposition home health service (06) | DRG 871 ==
LOC: ERS 22:47 → T4-B 03-04 00:29
PROVIDERS: ADMIT Student in an Organized Health Care Education/Training Program; ATTEND Student in an Organized Health Care Education/Training Program
DX: A41.02 Sepsis due to Methicillin resistant Staphylococcus aureus (principal); G93.41 Metabolic encephalopathy; N39.0 Urinary tract infection, site not specified; N17.9 Acute kidney failure, unspecified; E87.1 Hypo-osmolality and hyponatremia; Z20.822 Contact with and (suspected) exposure to COVID-19; N18.9 Chronic kidney disease, unspecified; E11.22 Type 2 diabetes mellitus with diabetic chronic kidney disease; K22.2 Esophageal obstruction; N81.2 Incomplete uterovaginal prolapse; E83.110 Hereditary hemochromatosis; G62.9 Polyneuropathy, unspecified; Z91.041 Radiographic dye allergy status; Z88.5 Allergy status to narcotic agent; Z88.1 Allergy status to other antibiotic agents; Z88.0 Allergy status to penicillin; Z88.2 Allergy status to sulfonamides; Z88.8 Allergy status to other drugs, medicaments and biological substances; Z91.09 Other allergy status, other than to drugs and biological substances; Z79.899 Other long term (current) drug therapy; Z79.82 Long term (current) use of aspirin; Z79.4 Long term (current) use of insulin; Z90.49 Acquired absence of other specified parts of digestive tract; Z90.710 Acquired absence of both cervix and uterus; Z83.2 Family history of diseases of the blood and blood-forming organs and certain disorders involving the immune mechanism; Z80.3 Family history of malignant neoplasm of breast
CPT/HCPCS: 36415; 36416; 51701; 71045; 80048; 80053; 81003; 81015; 82728; 83605; 84145; 85025; 87040; 87077; 87086; 87149; 87186; 87633; J0696; J1815; J3490; Q0162; Q0169; U0002; U0005

== ENCOUNTER 2022-04-08 14:56 | Inpatient (IN) | payer MEDICARE, MEDICAID ==
[2022-04-08 16:43] LABS: #Lymphocytes 0.7 thou/uL (1.20-3.40); #Monocytes 0.7 thou/uL (0.11-0.59); #Neutrophils 4.1 thou/uL (1.40-6.50); %Basophils 0.3 % (0.0-1.0); %Eosinophils 0.7 % (0.0-10.0); %Lymphocytes 13.3 % (21.0-51.0); %Monocytes 11.6 % (0.0-10.0); %Neutrophils 74.1 % (42.0-75.0); Hemoglobin 11.9 g/dL (12.0-16.0); Mean Corpuscular HGB CONC 34.3 g/dL (32.0-36.0); Mean Corpuscular Hemoglobin 31.4 pg (27.0-31.0); Mean Corpuscular Volume 91.6 fL (78.0-98.0); Mean Platelet Volume 7.2 fL (7.4-10.4); Platelet Count 152 thou/uL (130-400); RBC Distribution Width 11.5 % (11.5-14.5); Red Blood Cell (RBC) Count 3.79 mill/uL (4.20-5.40); White Blood Cell (WBC) Count 5.6 thou/uL (4.8-10.8)
[2022-04-08 17:03] LABS: Anion Gap 16 mmol/L (10-20); BUN (Urea Nitrogen) 12 mg/dL (9.8-20.1); Calc. Creatinine Clearance 0 mL/min (70-130); Carbon Dioxide 23 mmol/L (23-31); Chloride 104 mmol/L (98-107); Estimated GFR 90; Potassium 4.2 mmol/L (3.5-5.1); Sodium 139 mmol/L (136-145)
[2022-04-08 17:04] LABS: ALT (SGPT) 9 U/L (8-55); AST (SGOT) 14 U/L (5-34); Albumin 3.2 g/dL (3.4-4.8); Alkaline Phosphatase 57 U/L (40-110); Bilirubin, Total 1.4 mg/dL (0.2-1.2); Calcium 9.3 mg/dL (7.8-10.44); Globulin 3.3 g/dL (2.4-3.5); Glucose 180 mg/dL (83-110); Protein, Total 6.5 g/dL (5.8-8.1)
[2022-04-08] MEDS ORDERED: Morphine 4 MG/ML VIAL ONE (17:47)
[2022-04-08] MEDS: Morphine 4 MG/ML VIAL SLOW IVP PRN (23:33)
[2022-04-09] MEDS: predniSONE 50 MG TAB PO SCH ×3 (03:33→15:58)
[2022-04-09 04:27] LABS: #Eosinphils 0.1 thou/uL (0.0-0.7); #Lymphocytes 1.4 thou/uL (1.20-3.40); #Monocytes 0.6 thou/uL (0.11-0.59); #Neutrophils 3.9 thou/uL (1.40-6.50); %Basophils 0.8 % (0.0-1.0); %Eosinophils 1.4 % (0.0-10.0); %Lymphocytes 22.9 % (21.0-51.0); %Monocytes 10.4 % (0.0-10.0); %Neutrophils 64.5 % (42.0-75.0); Hemoglobin 11.2 g/dL (12.0-16.0); Mean Corpuscular HGB CONC 34.1 g/dL (32.0-36.0); Mean Corpuscular Hemoglobin 31.6 pg (27.0-31.0); Mean Corpuscular Volume 92.6 fL (78.0-98.0); Platelet Count 152 thou/uL (130-400); RBC Distribution Width 11.5 % (11.5-14.5); Red Blood Cell (RBC) Count 3.54 mill/uL (4.20-5.40)
[2022-04-09 04:55] LABS: Anion Gap 16 mmol/L (10-20); BUN (Urea Nitrogen) 13 mg/dL (9.8-20.1); Calc. Creatinine Clearance 60 mL/min (70-130); Carbon Dioxide 22 mmol/L (23-31); Cardiac Risk 3.7 (Less than 4.5); Chloride 106 mmol/L (98-107); Cholesterol 185 mg/dl (< 200 Desired); Estimated GFR 91; Glucose 126 mg/dL (83-110); HDL Cholesterol 50 mg/dL (>60 Neg Risk); LDL Cholesterol, Calculated 118 mg/dL; Potassium 3.8 mmol/L (3.5-5.1); Sodium 140 mmol/L (136-145); Triglycerides 85 mg/dL (Less than 150)
[2022-04-09 05:01] LABS: Bilirubin Negative (Negative); Blood, Urine Trace (Negative); Clarity Extra Turbid (Clear); Glucose, Urine (Dipstick) Normal (Negative); Ketone, Urine 100 mg/dL (Negative); Leukocyte 500 Leu/uL (Negative); Nitrite 2+ (Negative); Protein, Urine (Dipstick) 300 mg/dL (Neg-Trace); Specific Gravity, Urine 1.021 (1.002-1.036); Urobilinogen Normal mg/dL (Less than 2); pH, Urine 7.5 (5.0-9.0)
[2022-04-09 05:02] LABS: Bacteria/HPF 3+ HPF (None Seen); Squamous Epithelial 0-3 HPF (0-3)
[2022-04-09] MEDS: Morphine 4 MG/ML VIAL SLOW IVP PRN ×2 (07:56→20:58)
[2022-04-09] MEDS ORDERED: Alogliptin 6.25 MG TAB PO SCH (09:00)
[2022-04-09] MEDS: Alogliptin 6.25 MG TAB PO SCH (10:01)
[2022-04-09] MEDS: SYSTANE GEL OPHTH DROPS 10 ML EA EYE SCH (10:01)
[2022-04-09] MEDS ORDERED: diphenhydrAMINE 50 MG CAP PO SCH (15:30)
[2022-04-10] MEDS ORDERED: hydrOXYzine 10 MG TAB PO SCH (04:17)
[2022-04-10] MEDS: Alogliptin 6.25 MG TAB PO SCH (09:23)
[2022-04-10] MEDS: Morphine 4 MG/ML VIAL SLOW IVP PRN (09:28)
[2022-04-10] MEDS: SYSTANE GEL OPHTH DROPS 10 ML EA EYE SCH (09:32)
[2022-04-10] MEDS: ALPHA LIPOIC ACID 300 MG PO SCH (12:51)
[2022-04-11] MEDS: Morphine 4 MG/ML VIAL SLOW IVP PRN ×3 (02:19→22:37)
[2022-04-11] MEDS: Alogliptin 6.25 MG TAB PO SCH (09:47)
[2022-04-11] MEDS: SYSTANE GEL OPHTH DROPS 10 ML EA EYE SCH (09:48)
[2022-04-11] MEDS: hydrALAZINE 20 MG/ML VIAL SLOW IVP PRN (16:43)
[2022-04-11] MEDS: Ondansetron PF 4 MG/2 ML Vial IVP PRN ×2 (17:38→23:25)
[2022-04-12] MEDS: hydrALAZINE 20 MG/ML VIAL SLOW IVP PRN (05:14)
[2022-04-12] MEDS: Ondansetron PF 4 MG/2 ML Vial IVP PRN (05:15)
[2022-04-12 06:33] LABS: Anion Gap 16 mmol/L (10-20); BUN (Urea Nitrogen) 22 mg/dL (9.8-20.1); Calc. Creatinine Clearance 55 mL/min (70-130); Calcium 9.3 mg/dL (7.8-10.44); Carbon Dioxide 23 mmol/L (23-31); Chloride 101 mmol/L (98-107); Estimated GFR 90; Glucose 234 mg/dL (83-110); Magnesium 1.9 mg/dL (1.6-2.6); Sodium 136 mmol/L (136-145)
[2022-04-12] MEDS: SYSTANE GEL OPHTH DROPS 10 ML EA EYE SCH (08:45)
[2022-04-12] MEDS: Alogliptin 6.25 MG TAB PO SCH (08:45)
[2022-04-12 14:54] VITALS: BMI 22.2
[2022-04-12 15:39] LABS: Bacteria/HPF 4+ HPF (None Seen); Bilirubin Negative (Negative); Blood, Urine 2+ (Negative); Calcium Oxalate Crystals 3+ HPF (None Seen); Glucose, Urine (Dipstick) Normal (Negative); Ketone, Urine 100 mg/dL (Negative); Leukocyte 500 Leu/uL (Negative); Nitrite 2+ (Negative); Protein, Urine (Dipstick) 300 mg/dL (Neg-Trace); Specific Gravity, Urine 1.022 (1.002-1.036); Squamous Epithelial 0-3 HPF (0-3); Urobilinogen Normal mg/dL (Less than 2); WBC/HPF Greater than 50 HPF (0-3)
[2022-04-12 15:40] LABS: Clarity Turbid (Clear)
[2022-04-12] MEDS: Morphine 4 MG/ML VIAL SLOW IVP PRN ×2 (15:52→19:56)
[2022-04-13] MEDS: Ondansetron ODT 4 MG TAB PO PRN (08:42)
[2022-04-13] MEDS: Alogliptin 6.25 MG TAB PO SCH (08:42)
[2022-04-13] MEDS: SYSTANE GEL OPHTH DROPS 10 ML EA EYE SCH (08:42)
[2022-04-13] MEDS: traMADol HCl 50 MG TAB PO PRN (13:37)
[2022-04-13] MEDS: Ondansetron PF 4 MG/2 ML Vial IVP PRN (13:50)
[2022-04-13] MEDS ORDERED: Morphine 2 MG/ML VIAL SLOW IVP PRN (16:48)
[2022-04-14 05:05] LABS: ALT (SGPT) Less than 7 U/L (8-55); AST (SGOT) 11 U/L (5-34); Albumin 2.9 g/dL (3.4-4.8); Alkaline Phosphatase 67 U/L (40-110); Anion Gap 15 mmol/L (10-20); BUN (Urea Nitrogen) 20 mg/dL (9.8-20.1); Calc. Creatinine Clearance 58 mL/min (70-130); Calcium 9.1 mg/dL (7.8-10.44); Chloride 100 mmol/L (98-107); Estimated GFR 91; Globulin 3.2 g/dL (2.4-3.5); Glucose 204 mg/dL (83-110); Magnesium 1.7 mg/dL (1.6-2.6); Protein, Total 6.1 g/dL (5.8-8.1); Sodium 136 mmol/L (136-145)
[2022-04-14 05:40] LABS: Band 6 % (5-11); Hemoglobin 12.5 g/dL (12.0-16.0); Lymphocytes 6 % (21-51); MDiff Complete? YES; Mean Corpuscular HGB CONC 35.3 g/dL (32.0-36.0); Mean Corpuscular Hemoglobin 32.5 pg (27.0-31.0); Mean Platelet Volume 7.3 fL (7.4-10.4); Monocytes 10 % (0-10); Neutrophil 78 % (42-75); Platelet Count 174 thou/uL (130-400); Platelet Morphology Comment Appears Adequate; RBC Distribution Width 11.6 % (11.5-14.5); RBC Morphology Normal; Red Blood Cell (RBC) Count 3.84 mill/uL (4.20-5.40); White Blood Cell (WBC) Count 3.9 thou/uL (4.8-10.8)
[2022-04-14 05:43] LABS: Bilirubin, Total 0.9 mg/dL (0.2-1.2); Carbon Dioxide 25 mmol/L (23-31)
[2022-04-14] MEDS: SYSTANE GEL OPHTH DROPS 10 ML EA EYE SCH (09:42)
[2022-04-14] MEDS: Alogliptin 6.25 MG TAB PO SCH (09:43)
[2022-04-14] MEDS: traMADol HCl 50 MG TAB PO PRN ×2 (09:44→21:46)
[2022-04-14] MEDS ORDERED: Polyethylene Glycol 3350 17 GM Packet PO PRN (12:13)
[2022-04-14] MEDS ORDERED: Fleet Enema 133 ML BOT FS SCH (12:30)
[2022-04-14] MEDS: hydrALAZINE 20 MG/ML VIAL SLOW IVP PRN (21:47)
[2022-04-15 05:03] LABS: #Eosinphils 0.1 thou/uL (0.0-0.7); #Monocytes 0.6 thou/uL (0.11-0.59); %Basophils 0.4 % (0.0-1.0); %Eosinophils 1.6 % (0.0-10.0); %Monocytes 10.8 % (0.0-10.0); %Neutrophils 69.1 % (42.0-75.0); Hemoglobin 13.1 g/dL (12.0-16.0); Mean Corpuscular HGB CONC 34.8 g/dL (32.0-36.0); Mean Corpuscular Hemoglobin 31.8 pg (27.0-31.0); Mean Corpuscular Volume 91.2 fL (78.0-98.0); Mean Platelet Volume 7.3 fL (7.4-10.4); Platelet Count 200 thou/uL (130-400); RBC Distribution Width 11.7 % (11.5-14.5); Red Blood Cell (RBC) Count 4.11 mill/uL (4.20-5.40); White Blood Cell (WBC) Count 5.8 thou/uL (4.8-10.8)
[2022-04-15 05:20] LABS: ALT (SGPT) Less than 7 U/L (8-55); AST (SGOT) 10 U/L (5-34); Albumin 3.1 g/dL (3.4-4.8); Alkaline Phosphatase 73 U/L (40-110); Anion Gap 19 mmol/L (10-20); Calc. Creatinine Clearance 56 mL/min (70-130); Calcium 9.1 mg/dL (7.8-10.44); Carbon Dioxide 21 mmol/L (23-31); Chloride 101 mmol/L (98-107); Estimated GFR 91; Globulin 3.1 g/dL (2.4-3.5); Glucose 195 mg/dL (83-110); Magnesium 1.7 mg/dL (1.6-2.6); Potassium 3.6 mmol/L (3.5-5.1); Protein, Total 6.2 g/dL (5.8-8.1); Sodium 137 mmol/L (136-145)
[2022-04-15] MEDS: Ondansetron ODT 4 MG TAB PO PRN ×2 (05:28→23:23)
[2022-04-15 05:32] LABS: BUN (Urea Nitrogen) 16 mg/dL (9.8-20.1)
[2022-04-15] MEDS: Alogliptin 6.25 MG TAB PO SCH (09:13)
[2022-04-15] MEDS: traMADol HCl 50 MG TAB PO PRN ×3 (09:23→23:20)
[2022-04-15] MEDS: cefTRIAXone\\ROCEPHIN 1 GM in Sodium Chloride 0.9% 100 ML IVPB SCH ×2 (11:11→13:03)
[2022-04-15] MEDS ORDERED: SYSTANE GEL OPHTH DROPS 10 ML EA EYE SCH (12:45)
[2022-04-15] MEDS: SYSTANE GEL OPHTH DROPS 10 ML EA EYE SCH (12:47)
[2022-04-15] MEDS: hydrALAZINE 20 MG/ML VIAL SLOW IVP PRN (21:40)
[2022-04-16 05:00] LABS: #Eosinphils 0.1 thou/uL (0.0-0.7); #Monocytes 0.7 thou/uL (0.11-0.59); #Neutrophils 3.7 thou/uL (1.40-6.50); %Basophils 0.3 % (0.0-1.0); %Eosinophils 1.8 % (0.0-10.0); %Lymphocytes 17.9 % (21.0-51.0); %Monocytes 12.9 % (0.0-10.0); %Neutrophils 67.1 % (42.0-75.0); Hemoglobin 13.3 g/dL (12.0-16.0); Mean Corpuscular HGB CONC 35.7 g/dL (32.0-36.0); Mean Corpuscular Hemoglobin 32.5 pg (27.0-31.0); Mean Corpuscular Volume 90.9 fL (78.0-98.0); Mean Platelet Volume 6.9 fL (7.4-10.4); Platelet Count 214 thou/uL (130-400); Red Blood Cell (RBC) Count 4.08 mill/uL (4.20-5.40); White Blood Cell (WBC) Count 5.5 thou/uL (4.8-10.8)
[2022-04-16 05:30] LABS: ALT (SGPT) Less than 7 U/L (8-55); AST (SGOT) 8 U/L (5-34); Alkaline Phosphatase 85 U/L (40-110); Anion Gap 17 mmol/L (10-20); BUN (Urea Nitrogen) 18 mg/dL (9.8-20.1); Bilirubin, Total 0.8 mg/dL (0.2-1.2); Calc. Creatinine Clearance 53 mL/min (70-130); Calcium 9.4 mg/dL (7.8-10.44); Carbon Dioxide 24 mmol/L (23-31); Chloride 100 mmol/L (98-107); Estimated GFR 87; Globulin 3.2 g/dL (2.4-3.5); Glucose 234 mg/dL (83-110); Magnesium 1.8 mg/dL (1.6-2.6); Potassium 3.9 mmol/L (3.5-5.1); Protein, Total 6.2 g/dL (5.8-8.1); Sodium 137 mmol/L (136-145)
[2022-04-16] MEDS: Alogliptin 6.25 MG TAB PO SCH (09:40)
[2022-04-16] MEDS: traMADol HCl 50 MG TAB PO PRN ×2 (09:40→19:57)
[2022-04-16] MEDS: SYSTANE GEL OPHTH DROPS 10 ML EA EYE SCH (09:41)
[2022-04-16] MEDS: Ondansetron ODT 4 MG TAB PO PRN ×2 (09:41→20:01)
[2022-04-16] MEDS: cefTRIAXone\\ROCEPHIN 1 GM in Sodium Chloride 0.9% 100 ML IVPB SCH (10:06)
[2022-04-16] MEDS ORDERED: Gentamicin Ophth Ointment 0.3% 3.5 gm Tube L EYE SCH (17:00)
[2022-04-16] MEDS: Tobramycin 0.3% Ophth Oint 3.5 GM TUBE L EYE SCH ×2 (20:34→23:57)
[2022-04-16] MEDS: hydrALAZINE 20 MG/ML VIAL SLOW IVP PRN (20:35)
[2022-04-17] MEDS: Tobramycin 0.3% Ophth Oint 3.5 GM TUBE L EYE SCH ×5 (05:09→20:50)
[2022-04-17] MEDS: Alogliptin 6.25 MG TAB PO SCH (08:58)
[2022-04-17] MEDS: Ondansetron ODT 4 MG TAB PO PRN ×2 (08:58→20:46)
[2022-04-17] MEDS: SYSTANE GEL OPHTH DROPS 10 ML EA EYE SCH (08:59)
[2022-04-17] MEDS: traMADol HCl 50 MG TAB PO PRN ×3 (09:01→22:27)
[2022-04-17] MEDS ORDERED: Bisacodyl 10 MG SUPP PR PRN (15:40)
[2022-04-17] MEDS ORDERED: Bisacodyl 10 MG SUPP PR SCH (15:45)
[2022-04-18] MEDS: Ondansetron ODT 4 MG TAB PO PRN (02:00)
[2022-04-18] MEDS: Tobramycin 0.3% Ophth Oint 3.5 GM TUBE L EYE SCH ×7 (02:00→20:23)
[2022-04-18] MEDS: traMADol HCl 50 MG TAB PO PRN (03:59)
[2022-04-18] MEDS: SYSTANE GEL OPHTH DROPS 10 ML EA EYE SCH (08:10)
[2022-04-18] MEDS ORDERED: Ketorolac Tromethamine 30 MG/ML VIAL IVP SCH (09:15)
[2022-04-18] MEDS: Alogliptin 6.25 MG TAB PO SCH (11:21)
[2022-04-18] MEDS: ALPHA LIPOIC ACID PO SCH (11:22)
[2022-04-18] MEDS: Ketorolac Tromethamine 30 MG/ML VIAL IVP SCH ×2 (18:22→23:56)
[2022-04-19] MEDS: Tobramycin 0.3% Ophth Oint 3.5 GM TUBE L EYE SCH ×6 (01:06→21:40)
[2022-04-19] MEDS: Ketorolac Tromethamine 30 MG/ML VIAL IVP SCH ×3 (05:52→17:54)
[2022-04-19] MEDS ORDERED: Fentanyl 100 MCG/2 ML VIAL ONE (09:02)
[2022-04-19] MEDS ORDERED: PROPOFOL 200 MG/20 ML VIAL ONE (09:22)
[2022-04-19] MEDS ORDERED: Promethazine HCl 25 MG/ML VIAL IVPB PRN (09:43)
[2022-04-19] MEDS ORDERED: Promethazine HCl 25 MG/ML VIAL IM PRN (09:43)
[2022-04-19] MEDS ORDERED: Ondansetron HCl/PF 4 MG/2 ML Vial IVP PRN (09:43)
[2022-04-19] MEDS: Ondansetron ODT 4 MG TAB PO PRN (13:49)
[2022-04-19] MEDS: traMADol HCl 50 MG TAB PO PRN (13:49)
[2022-04-19] MEDS: ALPHA LIPOIC ACID PO SCH (13:50)
[2022-04-19] MEDS: Alogliptin 6.25 MG TAB PO SCH (13:50)
[2022-04-19] MEDS: Bisacodyl 10 MG SUPP PR SCH ×2 (13:51→21:40)
[2022-04-19] MEDS: Polyethylene Glycol 3350 17 GM Packet PO SCH (21:40)
[2022-04-20] MEDS: Ketorolac Tromethamine 30 MG/ML VIAL IVP SCH ×5 (00:12→20:25)
[2022-04-20] MEDS: Tobramycin 0.3% Ophth Oint 3.5 GM TUBE L EYE SCH ×6 (00:12→20:29)
[2022-04-20] MEDS: traMADol HCl 50 MG TAB PO PRN ×2 (02:43→20:20)
[2022-04-20] MEDS: Bisacodyl 10 MG SUPP PR SCH ×3 (06:01→20:29)
[2022-04-20] MEDS: Polyethylene Glycol 3350 17 GM Packet PO SCH ×2 (10:54→20:22)
[2022-04-20] MEDS: Alogliptin 6.25 MG TAB PO SCH (10:54)
[2022-04-20] MEDS: Pantoprazole 40 MG VIAL IVP SCH (10:56)
[2022-04-20] MEDS: ALPHA LIPOIC ACID PO SCH (10:57)
[2022-04-20] MEDS: Ondansetron PF 4 MG/2 ML Vial IVP PRN (12:16)
[2022-04-20 19:40] VITALS: TEMP 98.5
[2022-04-20] MEDS: Brimonidine Tartrate 0.2% Ophth Soln 5 ml Bottle L EYE SCH (20:28)
[2022-04-20] MEDS: Timolol 0.5% Ophth Soln 5 ml Bottle L EYE SCH (20:28)
[2022-04-20] MEDS: Ondansetron ODT 4 MG TAB PO PRN (20:35)
[2022-04-21] MEDS: Tobramycin 0.3% Ophth Oint 3.5 GM TUBE L EYE SCH ×3 (00:15→09:37)
[2022-04-21] MEDS: Ketorolac Tromethamine 30 MG/ML VIAL IVP SCH ×2 (06:03→13:14)
[2022-04-21] MEDS: Bisacodyl 10 MG SUPP PR SCH ×2 (06:03→14:31)
[2022-04-21 08:03] VITALS: BP 148/83
[2022-04-21] MEDS: Alogliptin 6.25 MG TAB PO SCH (09:33)
[2022-04-21] MEDS: Pantoprazole 40 MG VIAL IVP SCH (09:33)
[2022-04-21] MEDS: ALPHA LIPOIC ACID PO SCH (09:36)
[2022-04-21] MEDS: Timolol 0.5% Ophth Soln 5 ml Bottle L EYE SCH (09:37)
[2022-04-21] MEDS: Brimonidine Tartrate 0.2% Ophth Soln 5 ml Bottle L EYE SCH (09:37)
[2022-04-21] MEDS: Polyethylene Glycol 3350 17 GM Packet PO SCH (09:49)
[2022-04-21] MEDS: traMADol HCl 50 MG TAB PO PRN (13:20)
[2022-04-21] MEDS ORDERED: Latanoprost 0.005% Ophth Soln 2.5 ml Bottle L EYE SCH (21:00)
== END 2022-04-21 15:59 | DRG 552 ==
LOC: ERS 14:56 → 2NO 18:17 → MSONC 04-14 15:25
PROVIDERS: ADMIT Internal Medicine; ATTEND Internal Medicine
PROC: 0D748ZZ Dilation of Esophagogastric Junction, Via Natural or Artificial Opening Endoscopic (ICD-10-PCS; principal; 2022-04-19)
DX: S32.011A Stable burst fracture of first lumbar vertebra, initial encounter for closed fracture (principal); N30.01 Acute cystitis with hematuria; R55 Syncope and collapse; S32.021A Stable burst fracture of second lumbar vertebra, initial encounter for closed fracture; Z20.822 Contact with and (suspected) exposure to COVID-19; K21.9 Gastro-esophageal reflux disease without esophagitis; R13.10 Dysphagia, unspecified; M43.16 Spondylolisthesis, lumbar region; K44.9 Diaphragmatic hernia without obstruction or gangrene; K56.41 Fecal impaction; K22.2 Esophageal obstruction; N32.89 Other specified disorders of bladder; W18.30XA Fall on same level, unspecified, initial encounter; H10.32 Unspecified acute conjunctivitis, left eye; Y92.002 Bathroom of unspecified non-institutional (private) residence as the place of occurrence of the external cause; Z79.899 Other long term (current) drug therapy; Z88.5 Allergy status to narcotic agent; Z88.0 Allergy status to penicillin; Z88.2 Allergy status to sulfonamides; Z88.8 Allergy status to other drugs, medicaments and biological substances; Z88.6 Allergy status to analgesic agent; Z88.1 Allergy status to other antibiotic agents; Z91.041 Radiographic dye allergy status; Z79.84 Long term (current) use of oral hypoglycemic drugs; Z90.49 Acquired absence of other specified parts of digestive tract; Z90.710 Acquired absence of both cervix and uterus; Z87.440 Personal history of urinary (tract) infections; Z98.42 Cataract extraction status, left eye
CPT/HCPCS: 36415; 36416; 70450; 72131; 72192; 74174; 80048; 80053; 80061; 81001; 83735; 84484; 85025; 93005; 93306; 93880; 96374; C9113; J0360; J0696; J1885; J2270; J2405; J2704; J3010; J3490; J7512; Q0162; U0003; U0005

== ENCOUNTER 2022-11-11 11:11 | Outpatient (CLI) | payer MEDICARE, MEDICAID | END 2022-11-11 11:12 | disposition home or self-care (01) | LOC: BICRAD 11:11 | PROVIDERS: ATTEND Student in an Organized Health Care Education/Training Program | DX: M54.50 Low back pain, unspecified (principal); M47.816 Spondylosis without myelopathy or radiculopathy, lumbar region; M43.17 Spondylolisthesis, lumbosacral region; M43.12 Spondylolisthesis, cervical region | CPT/HCPCS: 72100; 72220 ==

== ENCOUNTER 2023-05-01 10:15 | Outpatient (CLI) | payer MEDICARE, MEDICAID | END 2023-05-01 10:16 | disposition home or self-care (01) | LOC: PET 10:15 | PROVIDERS: ATTEND Psychiatry & Neurology Neurology | DX: F03.B0 Unspecified dementia, moderate, without behavioral disturbance, psychotic disturbance, mood disturbance, and anxiety (principal) | CPT/HCPCS: 78803; A9552 ==

== ENCOUNTER 2023-08-12 09:31 | Emergency (ER) | payer MEDICARE, MEDICAID ==
[2023-08-12] MEDS ORDERED: Ondansetron PF 4 MG/2 ML Vial ONE ×2 (11:31→13:55)
[2023-08-12] MEDS ORDERED: Labetalol HCl 100 MG/20 ML VIAL ONE (11:32)
[2023-08-12 11:38] LABS: #Monocytes 0.3 thou/uL (0.11-0.59); #Neutrophils 5.5 thou/uL (1.40-6.50); %Basophils 0.5 % (0.0-1.0); %Lymphocytes 9.8 % (21.0-51.0); %Monocytes 4.2 % (0.0-10.0); %Neutrophils 85.2 % (42.0-75.0); Hematocrit 33.3 % (36.0-47.0); Hemoglobin 11.6 g/dL (12.0-16.0); Mean Corpuscular HGB CONC 34.8 g/dL (32.0-36.0); Mean Corpuscular Hemoglobin 31.2 pg (27.0-31.0); Mean Corpuscular Volume 89.5 fl (78.0-98.0); Mean Platelet Volume 9.6 fL (7.4-10.4); Platelet Count 175 10x3/uL (130-400); RBC Distribution Width 14.2 % (11.5-14.5); Red Blood Cell (RBC) Count 3.72 mill/uL (4.20-5.40); White Blood Cell (WBC) Count 6.4 10x3/uL (4.8-10.8)
[2023-08-12 12:10] LABS: ALT (SGPT) 12 U/L (8-55); AST (SGOT) 21 U/L (5-34); Albumin 3.2 g/dL (3.4-4.8); Alkaline Phosphatase 57 U/L (40-110); Anion Gap 23 mmol/L (10-20); BUN (Urea Nitrogen) 30 mg/dL (9.8-20.1); Bilirubin, Total 1.3 mg/dL (0.2-1.2); Calc. Creatinine Clearance 0 mL/min (70-130); Calcium 8.7 mg/dL (7.8-10.44); Carbon Dioxide 20 mmol/L (23-31); Chloride 103 mmol/L (98-107); Estimated GFR 65; Globulin 2.5 g/dL (2.4-3.5); Glucose 215 mg/dL (83-110); Lipase Less than 4 U/L (8-78); Potassium 3.8 mmol/L (3.5-5.1); Protein, Total 5.7 g/dL (5.8-8.1); Sodium 142 mmol/L (136-145)
[2023-08-12 14:47] LABS: Bacteria/HPF 4+ HPF (None Seen); Bilirubin Negative (Negative); Blood, Urine 3+ (Negative); CAUTI Indications for Culture Pelvic or flank pain; Clarity Extra Turbid (Clear); Glucose, Urine (Dipstick) Normal (Negative); Ketone, Urine Negative (Negative); Leukocyte 250 Leu/uL (Negative); Nitrite Negative (Negative); Protein, Urine (Dipstick) 600 mg/dL (Neg-Trace); RBC/HPF 21-50 HPF (0-3); Specific Gravity, Urine 1.017 (1.002-1.036); Squamous Epithelial None Seen HPF (0-3); Urobilinogen Normal mg/dL (Less than 2); WBC/HPF Greater than 50 HPF (0-3); pH, Urine 7.5 (5.0-9.0)
[2023-08-12 14:50] LABS: Urine Culture Reflex Yes Yes
== END 2023-08-12 15:27 | disposition home or self-care (01) ==
LOC: ERS 09:31
DX: N39.0 Urinary tract infection, site not specified (principal); K59.00 Constipation, unspecified; E11.9 Type 2 diabetes mellitus without complications; I10 Essential (primary) hypertension; Z79.899 Other long term (current) drug therapy
CPT/HCPCS: 51701; 74176; 80053; 81001; 83690; 85025; 87086; 93005; 96374; 96375; 96376; J2405

== ENCOUNTER 2023-08-15 15:10 | Inpatient (IN) | payer MEDICARE, MEDICAID ==
[2023-08-15 16:37] LABS: #Eosinphils 0.1 thou/uL (0.0-0.7); #Monocytes 0.8 thou/uL (0.11-0.59); #Neutrophils 4.4 thou/uL (1.40-6.50); %Basophils 0.3 % (0.0-1.0); %Eosinophils 1.4 % (0.0-10.0); %Lymphocytes 18.7 % (21.0-51.0); %Neutrophils 67.1 % (42.0-75.0); Hematocrit 35.1 % (36.0-47.0); Hemoglobin 12.4 g/dL (12.0-16.0); Mean Corpuscular HGB CONC 35.3 g/dL (32.0-36.0); Mean Corpuscular Volume 87.8 fl (78.0-98.0); Platelet Count 237 10x3/uL (130-400); RBC Distribution Width 13.7 % (11.5-14.5); White Blood Cell (WBC) Count 6.5 10x3/uL (4.8-10.8)
[2023-08-15 17:03] LABS: ALT (SGPT) 11 U/L (8-55); AST (SGOT) 16 U/L (5-34); Alkaline Phosphatase 59 U/L (40-110); Anion Gap 17 mmol/L (10-20); BUN (Urea Nitrogen) 43 mg/dL (9.8-20.1); Calc. Creatinine Clearance 0 mL/min (70-130); Calcium 9.1 mg/dL (7.8-10.44); Carbon Dioxide 23 mmol/L (23-31); Chloride 106 mmol/L (98-107); Estimated GFR 46; Globulin 2.5 g/dL (2.4-3.5); Glucose 219 mg/dL (83-110); Lipase 9 U/L (8-78); Potassium 3.4 mmol/L (3.5-5.1); Protein, Total 5.5 g/dL (5.8-8.1); Sodium 143 mmol/L (136-145)
[2023-08-15 18:14] LABS: Bacteria/HPF 4+ HPF (None Seen); Bilirubin Negative (Negative); Blood, Urine Trace (Negative); CAUTI Indications for Culture Dysuria,urgency,freq; Clarity Extra Turbid (Clear); Glucose, Urine (Dipstick) Normal (Negative); Ketone, Urine Negative (Negative); Leukocyte 500 Leu/uL (Negative); Nitrite Negative (Negative); Protein, Urine (Dipstick) 600 mg/dL (Neg-Trace); RBC/HPF None Seen HPF (0-3); Specific Gravity, Urine 1.014 (1.002-1.036); Squamous Epithelial None Seen HPF (0-3); Urobilinogen Normal mg/dL (Less than 2); WBC/HPF Greater than 50 HPF (0-3); pH, Urine 7.5 (5.0-9.0)
[2023-08-15 18:18] LABS: Urine Culture Reflex Yes Yes
[2023-08-15] MEDS ORDERED: Sodium Chloride 0.9% 100 ML ONE (19:34)
[2023-08-15] MEDS ORDERED: cefTRIAXone (ROCEPHIN) 1 GM VIAL ONE (19:34)
[2023-08-15] MEDS ORDERED: Potassium Chloride 20 MEQ TAB PO SCH (20:00)
[2023-08-15] MEDS ORDERED: Mineral Oil ENEMA PR SCH (20:00)
[2023-08-15] MEDS ORDERED: HumaLOG 300 UNITS/3 ML VIAL SC PRN (20:18)
[2023-08-15] MEDS ORDERED: Glucagon 1 MG/ML KIT IM PRN (20:18)
[2023-08-15] MEDS ORDERED: Dextrose 5% in Water 1,000 ML IV PRN (20:18)
[2023-08-15] MEDS ORDERED: Dextrose 50% Abboject 50 ML SYRINGE SLOW IVP PRN (20:18)
[2023-08-15] MEDS ORDERED: Potassium Chloride 20 MEQ TAB ONE (21:01)
[2023-08-15] MEDS ORDERED: Famotidine 20 MG TAB ONE (21:01)
[2023-08-15] MEDS: Famotidine 20 MG TAB PO SCH (21:05)
[2023-08-15] MEDS ORDERED: Polyvinyl Alcohol 1.4%/Povidone 0.6% Opth Drops EA EYE PRN (21:08)
[2023-08-15] MEDS ORDERED: Polyethylene Glycol 3350 17 GM Packet ONE (21:33)
[2023-08-15] MEDS: Latanoprost 0.005% Ophth Soln 2.5 ml Bottle EA EYE SCH (21:45)
[2023-08-15] MEDS: Polyethylene Glycol 3350 17 GM Packet PO SCH (21:59)
[2023-08-15] MEDS: Lactated Ringer's 1,000 ML IV SCH (22:31)
[2023-08-15] MEDS ORDERED: hydrALAZINE 20 MG/ML VIAL ONE (23:07)
[2023-08-15] MEDS: Glycerin Adult Supp. (24 ct jar) PR SCH (23:44)
[2023-08-15] MEDS ORDERED: Losartan 25 MG TAB PO SCH (23:45)
[2023-08-15] MEDS: prednisoLONE 1% Ophth Susp 5 ml Bottle EA EYE SCH (23:45)
[2023-08-15] MEDS: Timolol 0.5% Ophth Soln 5 ml Bottle EA EYE SCH (23:47)
[2023-08-16 00:57] VITALS: BMI 23.8
[2023-08-16 04:39] LABS: #Eosinphils 0.1 thou/uL (0.0-0.7); #Monocytes 0.7 thou/uL (0.11-0.59); %Basophils 0.4 % (0.0-1.0); %Eosinophils 2.4 % (0.0-10.0); %Lymphocytes 23.4 % (21.0-51.0); %Neutrophils 60.2 % (42.0-75.0); Hematocrit 33.9 % (36.0-47.0); Hemoglobin 11.6 g/dL (12.0-16.0); Mean Corpuscular HGB CONC 34.2 g/dL (32.0-36.0); Mean Corpuscular Hemoglobin 30.4 pg (27.0-31.0); Mean Platelet Volume 9.6 fL (7.4-10.4); Platelet Count 187 10x3/uL (130-400); RBC Distribution Width 13.7 % (11.5-14.5); Red Blood Cell (RBC) Count 3.81 mill/uL (4.20-5.40)
[2023-08-16] MEDS: Lactated Ringer's 1,000 ML IV SCH (04:43)
[2023-08-16 05:03] LABS: ALT (SGPT) 9 U/L (8-55); AST (SGOT) 14 U/L (5-34); Albumin 2.6 g/dL (3.4-4.8); Alkaline Phosphatase 50 U/L (40-110); Anion Gap 15 mmol/L (10-20); BUN (Urea Nitrogen) 38 mg/dL (9.8-20.1); Bilirubin, Total 0.7 mg/dL (0.2-1.2); Calc. Creatinine Clearance 42 mL/min (70-130); Calcium 8.4 mg/dL (7.8-10.44); Carbon Dioxide 22 mmol/L (23-31); Chloride 109 mmol/L (98-107); Estimated GFR 54; Globulin 2.4 g/dL (2.4-3.5); Glucose 184 mg/dL (83-110); Potassium 3.4 mmol/L (3.5-5.1); Sodium 143 mmol/L (136-145)
[2023-08-16] MEDS: Ondansetron PF 4 MG/2 ML Vial IVP PRN ×2 (06:14→12:36)
[2023-08-16] MEDS ORDERED: Potassium Chloride 20 MEQ TAB PO SCH (08:00)
[2023-08-16] MEDS: Multivitamin W/ Minerals 1 TAB PO SCH (08:52)
[2023-08-16] MEDS: Polyethylene Glycol 3350 17 GM Packet PO SCH ×2 (08:54→21:54)
[2023-08-16] MEDS: Mirabegron ER 25 MG ER.TAB PO SCH (08:54)
[2023-08-16] MEDS: Folic Acid 1 MG TAB PO SCH (08:55)
[2023-08-16] MEDS: Estradiol 1 MG TAB PO SCH ×2 (08:55→12:36)
[2023-08-16] MEDS: prednisoLONE 1% Ophth Susp 5 ml Bottle EA EYE SCH ×2 (08:55→21:56)
[2023-08-16] MEDS: Rivastigmine 1.5 MG CAP PO SCH (08:56)
[2023-08-16] MEDS: Timolol 0.5% Ophth Soln 5 ml Bottle EA EYE SCH ×2 (08:56→21:57)
[2023-08-16] MEDS ORDERED: Losartan 25 MG TAB PO SCH (09:00)
[2023-08-16] MEDS: Glycerin Adult Supp. (24 ct jar) PR SCH ×2 (12:35→21:54)
[2023-08-16] MEDS: hydrALAZINE 20 MG/ML VIAL SLOW IVP PRN (21:46)
[2023-08-16] MEDS: Famotidine 20 MG TAB PO SCH (21:54)
[2023-08-16] MEDS: cefTRIAXone\\ROCEPHIN 1 GM in Sodium Chloride 0.9% 100 ML IVPB SCH (21:55)
[2023-08-16] MEDS: Latanoprost 0.005% Ophth Soln 2.5 ml Bottle EA EYE SCH (21:56)
[2023-08-17] MEDS ORDERED: Losartan 25 MG TAB PO SCH ×3 (00:15→09:00)
[2023-08-17] MEDS: hydrALAZINE 20 MG/ML VIAL SLOW IVP PRN ×2 (04:39→21:15)
[2023-08-17 06:29] LABS: ALT (SGPT) 8 U/L (8-55); AST (SGOT) 14 U/L (5-34); Albumin 2.5 g/dL (3.4-4.8); Alkaline Phosphatase 47 U/L (40-110); Anion Gap 16 mmol/L (10-20); BUN (Urea Nitrogen) 40 mg/dL (9.8-20.1); Bilirubin, Total 0.8 mg/dL (0.2-1.2); Calc. Creatinine Clearance 39 mL/min (70-130); Calcium 8.2 mg/dL (7.8-10.44); Carbon Dioxide 21 mmol/L (23-31); Chloride 110 mmol/L (98-107); Estimated GFR 50; Globulin 2.4 g/dL (2.4-3.5); Glucose 192 mg/dL (83-110); Potassium 4.2 mmol/L (3.5-5.1); Protein, Total 4.9 g/dL (5.8-8.1); Sodium 143 mmol/L (136-145)
[2023-08-17] MEDS: Mirabegron ER 25 MG ER.TAB PO SCH (09:45)
[2023-08-17] MEDS: Folic Acid 1 MG TAB PO SCH (09:45)
[2023-08-17] MEDS: Estradiol 1 MG TAB PO SCH (09:45)
[2023-08-17] MEDS: Multivitamin W/ Minerals 1 TAB PO SCH (09:45)
[2023-08-17] MEDS: Polyethylene Glycol 3350 17 GM Packet PO SCH ×2 (09:46→20:46)
[2023-08-17] MEDS: Glycerin Adult Supp. (24 ct jar) PR SCH ×2 (09:47→20:53)
[2023-08-17] MEDS: Rivastigmine 1.5 MG CAP PO SCH (11:19)
[2023-08-17] MEDS: Timolol 0.5% Ophth Soln 5 ml Bottle EA EYE SCH ×2 (11:20→20:56)
[2023-08-17] MEDS: prednisoLONE 1% Ophth Susp 5 ml Bottle EA EYE SCH ×2 (11:20→20:48)
[2023-08-17] MEDS ORDERED: Polyethylene Glycol 3350 17 GM Packet PO SCH (18:00)
[2023-08-17] MEDS ORDERED: Bisacodyl 5 MG TAB PO SCH (18:15)
[2023-08-17] MEDS: cefTRIAXone\\ROCEPHIN 1 GM in Sodium Chloride 0.9% 100 ML IVPB SCH (20:58)
[2023-08-17] MEDS: Famotidine 20 MG TAB PO SCH (20:59)
[2023-08-17] MEDS: Latanoprost 0.005% Ophth Soln 2.5 ml Bottle EA EYE SCH (21:10)
[2023-08-18 06:08] LABS: ALT (SGPT) 7 U/L (8-55); AST (SGOT) 10 U/L (5-34); Albumin 2.1 g/dL (3.4-4.8); Alkaline Phosphatase 40 U/L (40-110); Anion Gap 12 mmol/L (10-20); BUN (Urea Nitrogen) 39 mg/dL (9.8-20.1); Bilirubin, Total 0.6 mg/dL (0.2-1.2); Calc. Creatinine Clearance 38 mL/min (70-130); Calcium 8.2 mg/dL (7.8-10.44); Carbon Dioxide 23 mmol/L (23-31); Chloride 113 mmol/L (98-107); Estimated GFR 48; Globulin 1.9 g/dL (2.4-3.5); Glucose 192 mg/dL (83-110); Potassium 3.8 mmol/L (3.5-5.1); Sodium 144 mmol/L (136-145)
[2023-08-18] MEDS: Losartan 25 MG TAB PO SCH (09:45)
[2023-08-18] MEDS: Mirabegron ER 25 MG ER.TAB PO SCH (09:45)
[2023-08-18] MEDS: Multivitamin W/ Minerals 1 TAB PO SCH (09:45)
[2023-08-18] MEDS: Folic Acid 1 MG TAB PO SCH (09:46)
[2023-08-18] MEDS: Polyethylene Glycol 3350 17 GM Packet PO SCH ×2 (09:46→21:41)
[2023-08-18] MEDS: Glycerin Adult Supp. (24 ct jar) PR SCH ×3 (09:47→21:47)
[2023-08-18] MEDS: Rivastigmine 1.5 MG CAP PO SCH (09:48)
[2023-08-18] MEDS: prednisoLONE 1% Ophth Susp 5 ml Bottle EA EYE SCH ×2 (09:51→21:42)
[2023-08-18] MEDS: Timolol 0.5% Ophth Soln 5 ml Bottle EA EYE SCH ×2 (09:53→22:02)
[2023-08-18] MEDS: Estradiol 1 MG TAB PO SCH (10:32)
[2023-08-18] MEDS ORDERED: Preparation H Ointment 57 gram tube TOP PRN (10:44)
[2023-08-18] MEDS: hydrALAZINE 20 MG/ML VIAL SLOW IVP PRN (12:49)
[2023-08-18] MEDS: Ondansetron ODT 4 MG TAB PO PRN (14:17)
[2023-08-18] MEDS: HumaLOG 300 UNITS/3 ML VIAL SC PRN ×2 (14:54→19:09)
[2023-08-18] MEDS ORDERED: Estradiol 0.01% Vaginal Cream 42.5 gm Tube VAG SCH (21:00)
[2023-08-18] MEDS: cefTRIAXone\\ROCEPHIN 1 GM in Sodium Chloride 0.9% 100 ML IVPB SCH (21:41)
[2023-08-18] MEDS: Famotidine 20 MG TAB PO SCH (21:41)
[2023-08-18] MEDS: Latanoprost 0.005% Ophth Soln 2.5 ml Bottle EA EYE SCH (21:49)
[2023-08-19 05:50] LABS: ALT (SGPT) 7 U/L (8-55); AST (SGOT) 11 U/L (5-34); Albumin 1.8 g/dL (3.4-4.8); Alkaline Phosphatase 40 U/L (40-110); Anion Gap 11 mmol/L (10-20); BUN (Urea Nitrogen) 37 mg/dL (9.8-20.1); Bilirubin, Total 0.7 mg/dL (0.2-1.2); Calc. Creatinine Clearance 44 mL/min (70-130); Calcium 8.2 mg/dL (7.8-10.44); Carbon Dioxide 25 mmol/L (23-31); Chloride 112 mmol/L (98-107); Estimated GFR 58; Glucose 114 mg/dL (83-110); Potassium 3.6 mmol/L (3.5-5.1); Protein, Total 3.8 g/dL (5.8-8.1); Sodium 144 mmol/L (136-145)
[2023-08-19] MEDS: Polyethylene Glycol 3350 17 GM Packet PO SCH ×2 (09:02→21:12)
[2023-08-19] MEDS: Folic Acid 1 MG TAB PO SCH (09:03)
[2023-08-19] MEDS: Multivitamin W/ Minerals 1 TAB PO SCH (09:03)
[2023-08-19] MEDS: Losartan 25 MG TAB PO SCH (09:03)
[2023-08-19] MEDS: Mirabegron ER 25 MG ER.TAB PO SCH (09:03)
[2023-08-19] MEDS: prednisoLONE 1% Ophth Susp 5 ml Bottle EA EYE SCH ×2 (09:04→21:13)
[2023-08-19] MEDS: Rivastigmine 1.5 MG CAP PO SCH (09:04)
[2023-08-19] MEDS: Timolol 0.5% Ophth Soln 5 ml Bottle EA EYE SCH ×2 (09:04→21:20)
[2023-08-19] MEDS: Docusate 100 MG CAP PO SCH (09:05)
[2023-08-19] MEDS: HumaLOG 300 UNITS/3 ML VIAL SC PRN (12:43)
[2023-08-19] MEDS: Ondansetron ODT 4 MG TAB PO PRN (12:43)
[2023-08-19] MEDS: cefTRIAXone\\ROCEPHIN 1 GM in Sodium Chloride 0.9% 100 ML IVPB SCH (21:13)
[2023-08-19] MEDS: Famotidine 20 MG TAB PO SCH (21:13)
[2023-08-19] MEDS: Latanoprost 0.005% Ophth Soln 2.5 ml Bottle EA EYE SCH (21:26)
[2023-08-20 05:50] LABS: ALT (SGPT) 7 U/L (8-55); AST (SGOT) 13 U/L (5-34); Albumin 1.8 g/dL (3.4-4.8); Alkaline Phosphatase 42 U/L (40-110); Anion Gap 11 mmol/L (10-20); BUN (Urea Nitrogen) 32 mg/dL (9.8-20.1); Bilirubin, Total 0.6 mg/dL (0.2-1.2); Calc. Creatinine Clearance 49 mL/min (70-130); Calcium 8.2 mg/dL (7.8-10.44); Carbon Dioxide 25 mmol/L (23-31); Chloride 109 mmol/L (98-107); Estimated GFR 65; Globulin 2.1 g/dL (2.4-3.5); Glucose 158 mg/dL (83-110); Potassium 3.9 mmol/L (3.5-5.1); Protein, Total 3.9 g/dL (5.8-8.1); Sodium 141 mmol/L (136-145)
[2023-08-20] MEDS: Timolol 0.5% Ophth Soln 5 ml Bottle EA EYE SCH (09:05)
[2023-08-20] MEDS: Losartan 25 MG TAB PO SCH (09:07)
[2023-08-20] MEDS: Docusate 100 MG CAP PO SCH (09:07)
[2023-08-20] MEDS: Folic Acid 1 MG TAB PO SCH (09:07)
[2023-08-20] MEDS: Multivitamin W/ Minerals 1 TAB PO SCH (09:08)
[2023-08-20] MEDS: Mirabegron ER 25 MG ER.TAB PO SCH (09:08)
[2023-08-20] MEDS: Rivastigmine 1.5 MG CAP PO SCH (09:09)
[2023-08-20] MEDS: Polyethylene Glycol 3350 17 GM Packet PO SCH (09:09)
[2023-08-20] MEDS: prednisoLONE 1% Ophth Susp 5 ml Bottle EA EYE SCH (09:10)
[2023-08-20] MEDS: Ondansetron PF 4 MG/2 ML Vial IVP PRN (11:48)
[2023-08-20 12:27] VITALS: BP 191/97; TEMP 97.6
== END 2023-08-20 14:55 | disposition swing bed (61) | DRG 690 ==
LOC: ERS 15:10 → ERHOLD 19:45 → SJJU 22:59 → OBSVTOIN 08-17 11:52
PROVIDERS: ADMIT Student in an Organized Health Care Education/Training Program; ATTEND Student in an Organized Health Care Education/Training Program
DX: N39.0 Urinary tract infection, site not specified (principal); J90 Pleural effusion, not elsewhere classified; N17.9 Acute kidney failure, unspecified; K56.41 Fecal impaction; F03.90 Unspecified dementia, unspecified severity, without behavioral disturbance, psychotic disturbance, mood disturbance, and anxiety; E11.9 Type 2 diabetes mellitus without complications; I10 Essential (primary) hypertension; K21.9 Gastro-esophageal reflux disease without esophagitis; R33.9 Retention of urine, unspecified; N81.10 Cystocele, unspecified; I65.21 Occlusion and stenosis of right carotid artery; F41.8 Other specified anxiety disorders; E87.6 Hypokalemia; I25.10 Atherosclerotic heart disease of native coronary artery without angina pectoris; B96.20 Unspecified Escherichia coli [E. coli] as the cause of diseases classified elsewhere; R41.82 Altered mental status, unspecified; B96.1 Klebsiella pneumoniae [K. pneumoniae] as the cause of diseases classified elsewhere; K52.89 Other specified noninfective gastroenteritis and colitis; K62.89 Other specified diseases of anus and rectum; N32.89 Other specified disorders of bladder; K44.9 Diaphragmatic hernia without obstruction or gangrene; Z98.49 Cataract extraction status, unspecified eye; Z79.899 Other long term (current) drug therapy; Z91.040 Latex allergy status; Z88.8 Allergy status to other drugs, medicaments and biological substances; Z88.1 Allergy status to other antibiotic agents; Z88.2 Allergy status to sulfonamides; Z91.013 Allergy to seafood; Z98.890 Other specified postprocedural states; Z90.49 Acquired absence of other specified parts of digestive tract; Z90.710 Acquired absence of both cervix and uterus
CPT/HCPCS: 36415; 36416; 51701; 74176; 80053; 81001; 83605; 83690; 85025; 87077; 87086; 87186; 96365; J0360; J0696; J1650; J1815; J2405; J3490; J7120; Q0162

== ENCOUNTER 2023-11-04 11:12 | Emergency (ER) | payer MEDICARE, MEDICAID ==
[2023-11-04 12:25] LABS: #Eosinphils 0.1 thou/uL (0.0-0.7); #Monocytes 0.4 thou/uL (0.11-0.59); %Basophils 0.7 % (0.0-1.0); %Eosinophils 2.1 % (0.0-10.0); %Lymphocytes 20.1 % (21.0-51.0); %Monocytes 7.5 % (0.0-10.0); %Neutrophils 69.1 % (42.0-75.0); Hematocrit 30.4 % (36.0-47.0); Hemoglobin 10.8 g/dL (12.0-16.0); Mean Corpuscular HGB CONC 35.5 g/dL (32.0-36.0); Mean Corpuscular Hemoglobin 31.3 pg (27.0-31.0); Mean Corpuscular Volume 88.1 fl (78.0-98.0); Mean Platelet Volume 9.4 fL (7.4-10.4); Platelet Count 212 10x3/uL (130-400); RBC Distribution Width 14.1 % (11.5-14.5); Red Blood Cell (RBC) Count 3.45 mill/uL (4.20-5.40); White Blood Cell (WBC) Count 5.7 10x3/uL (4.8-10.8)
[2023-11-04 12:37] LABS: ALT (SGPT) 11 U/L (8-55); AST (SGOT) 19 U/L (5-34); Albumin 3.2 g/dL (3.4-4.8); Alkaline Phosphatase 50 U/L (40-110); Anion Gap 13 mmol/L (10-20); BUN (Urea Nitrogen) 38 mg/dL (9.8-20.1); Bilirubin, Total 0.9 mg/dL (0.2-1.2); Calc. Creatinine Clearance 0 mL/min (70-130); Calcium 9.1 mg/dL (7.8-10.44); Carbon Dioxide 23 mmol/L (23-31); Chloride 101 mmol/L (98-107); Estimated GFR 62; Globulin 2.8 g/dL (2.4-3.5); Glucose 149 mg/dL (83-110); Potassium 4.1 mmol/L (3.5-5.1); Sodium 133 mmol/L (136-145)
[2023-11-04 13:56] LABS: Bacteria/HPF 2+ HPF (None Seen); Bilirubin Negative (Negative); Blood, Urine Trace (Negative); CAUTI Indications for Culture Alt mental st,lethar; Clarity Extra Turbid (Clear); Glucose, Urine (Dipstick) Normal (Negative); Ketone, Urine Negative (Negative); Leukocyte 500 Leu/uL (Negative); Nitrite Negative (Negative); Protein, Urine (Dipstick) 300 mg/dL (Neg-Trace); RBC/HPF 0-3 HPF (0-3); Specific Gravity, Urine 1.012 (1.002-1.036); Squamous Epithelial 0-3 HPF (0-3); Urobilinogen Normal mg/dL (Less than 2); WBC/HPF Greater than 50 HPF (0-3); pH, Urine 7.5 (5.0-9.0)
[2023-11-04 13:58] LABS: Urine Culture Reflex Yes Yes
[2023-11-04] MEDS ORDERED: Nitrofurantoin Monohyd/M-Cryst 100 MG CAP ONE (14:18)
== END 2023-11-04 14:30 | disposition home or self-care (01) ==
LOC: ERS 11:12
DX: N39.0 Urinary tract infection, site not specified (principal); E11.9 Type 2 diabetes mellitus without complications; I10 Essential (primary) hypertension
CPT/HCPCS: 36415; 80053; 81001; 83605; 85025; 87077; 87086; 87186; 99284

== ENCOUNTER 2023-11-09 19:38 | Emergency (ER) | payer MEDICARE, MEDICAID ==
[2023-11-09 21:47] LABS: #Basophils 0.1 thou/uL (0.0-0.2); #Eosinphils 0.2 thou/uL (0.0-0.7); #Monocytes 0.5 thou/uL (0.11-0.59); #Neutrophils 3.3 thou/uL (1.40-6.50); %Basophils 0.9 % (0.0-1.0); %Eosinophils 2.9 % (0.0-10.0); %Lymphocytes 28.3 % (21.0-51.0); %Monocytes 8.6 % (0.0-10.0); %Neutrophils 59.1 % (42.0-75.0); Hematocrit 30.9 % (36.0-47.0); Hemoglobin 10.8 g/dL (12.0-16.0); Mean Corpuscular Hemoglobin 30.9 pg (27.0-31.0); Mean Corpuscular Volume 88.3 fl (78.0-98.0); Mean Platelet Volume 9.2 fL (7.4-10.4); Platelet Count 205 10x3/uL (130-400); RBC Distribution Width 14.6 % (11.5-14.5); White Blood Cell (WBC) Count 5.6 10x3/uL (4.8-10.8)
[2023-11-09 22:11] LABS: Bacteria/HPF 2+ HPF (None Seen); Bilirubin Negative (Negative); Blood, Urine 2+ (Negative); CAUTI Indications for Culture Dysuria,urgency,freq; Clarity Turbid (Clear); Glucose, Urine (Dipstick) Normal (Negative); Ketone, Urine 40 mg/dL (Negative); Leukocyte 500 Leu/uL (Negative); Nitrite Negative (Negative); Protein, Urine (Dipstick) 300 mg/dL (Neg-Trace); Specific Gravity, Urine 1.015 (1.002-1.036); Urobilinogen Normal mg/dL (Less than 2); WBC/HPF Greater than 50 HPF (0-3)
[2023-11-09 22:13] LABS: ALT (SGPT) 12 U/L (8-55); AST (SGOT) 25 U/L (5-34); Albumin 3.3 g/dL (3.4-4.8); Alkaline Phosphatase 56 U/L (40-110); Anion Gap 14 mmol/L (10-20); BUN (Urea Nitrogen) 34 mg/dL (9.8-20.1); Bilirubin, Total 0.5 mg/dL (0.2-1.2); CK (CPK) 86 U/L (29-168); Calc. Creatinine Clearance 0 mL/min (70-130); Calcium 9.9 mg/dL (7.8-10.44); Carbon Dioxide 20 mmol/L (23-31); Chloride 105 mmol/L (98-107); Estimated GFR 57; Globulin 2.8 g/dL (2.4-3.5); Glucose 149 mg/dL (83-110); Lipase 23 U/L (8-78); Potassium 4.9 mmol/L (3.5-5.1); Protein, Total 6.1 g/dL (5.8-8.1); Sodium 134 mmol/L (136-145)
[2023-11-09 22:15] LABS: Urine Culture Reflex Yes Yes
[2023-11-09 22:57] LABS: SARS-CoV-2 NAA Rapid Test Not Detected (NotDetected)
[2023-11-09] MEDS ORDERED: Clindamycin/D5W 900 MG in Premix 1 BAG IVPB SCH (23:15)
== END 2023-11-10 00:10 | disposition home or self-care (01) ==
LOC: ERS 19:38
DX: N39.0 Urinary tract infection, site not specified (principal); F03.90 Unspecified dementia, unspecified severity, without behavioral disturbance, psychotic disturbance, mood disturbance, and anxiety; I10 Essential (primary) hypertension; Z79.899 Other long term (current) drug therapy
CPT/HCPCS: 0240U; 80053; 81001; 82140; 82550; 83605; 83690; 85025; 87040; 87086; 36415; 96365; J3490

== ENCOUNTER 2023-11-15 00:40 | Inpatient (IN) | payer MEDICARE, MEDICAID ==
[2023-11-15 03:07] LABS: Bacteria/HPF 4+ HPF (None Seen); Bilirubin Negative (Negative); Blood, Urine 1+ (Negative); CAUTI Indications for Culture Dysuria,urgency,freq; Clarity Turbid (Clear); Glucose, Urine (Dipstick) Normal (Negative); Ketone, Urine Negative (Negative); Leukocyte 500 Leu/uL (Negative); Nitrite Negative (Negative); Protein, Urine (Dipstick) 300 mg/dL (Neg-Trace); RBC/HPF 0-3 HPF (0-3); Specific Gravity, Urine 1.012 (1.002-1.036); Squamous Epithelial 0-3 HPF (0-3); Urobilinogen Normal mg/dL (Less than 2); WBC/HPF Greater than 50 HPF (0-3)
[2023-11-15 03:09] LABS: Urine Culture Reflex Yes Yes
[2023-11-15 03:14] LABS: Amphetamine Not Detected (NotDetected); Barbiturates Screen Not Detected (NotDetected); Benzodiazepine Screen Not Detected (NotDetected); Cocaine Metabolite Screen Not Detected (NotDetected); Methadone Not Detected (NotDetected); Methamphetamine Not Detected (NotDetected); Opiate Screen Not Detected (NotDetected); Oxycodone Screen Not Detected (NotDetected); Phencyclidine (PCP) Not Detected (NotDetected); THC/Cannabinoid Screen Not Detected (NotDetected); Tricyclic Screen Not Detected (NotDetected)
[2023-11-15 03:54] LABS: #Basophils 0.1 thou/uL (0.0-0.2); #Eosinphils 0.2 thou/uL (0.0-0.7); #Monocytes 0.6 thou/uL (0.11-0.59); #Neutrophils 3.3 thou/uL (1.40-6.50); %Basophils 0.9 % (0.0-1.0); %Eosinophils 3.9 % (0.0-10.0); %Lymphocytes 24.6 % (21.0-51.0); %Monocytes 10.6 % (0.0-10.0); %Neutrophils 59.6 % (42.0-75.0); Hematocrit 26.3 % (36.0-47.0); Hemoglobin 9.4 g/dL (12.0-16.0); Mean Corpuscular HGB CONC 35.7 g/dL (32.0-36.0); Mean Corpuscular Hemoglobin 30.9 pg (27.0-31.0); Mean Corpuscular Volume 86.5 fl (78.0-98.0); Mean Platelet Volume 9.6 fL (7.4-10.4); Platelet Count 170 10x3/uL (130-400); RBC Distribution Width 14.6 % (11.5-14.5); Red Blood Cell (RBC) Count 3.04 mill/uL (4.20-5.40); White Blood Cell (WBC) Count 5.5 10x3/uL (4.8-10.8)
[2023-11-15 04:00] LABS: Actual Bicarbonate (HCO3v) 19.6 mEq/L (22-28); Base Excess -5.2 mEq/L (-2.0 to +3.0); Calcium, Ionized (venous) 1.21 mmol/L (1.16-1.32); Chloride (VBG) 103 mmol/L (98-106); Hematocrit-VBG 30 % (36.0-47.0); Hemoglobin (Hb) 10.1 g/dL (11.7-16.1); Potassium (VBG) 4.39 mmol/L (3.70-5.30); Sodium 130 mmol/L (133-146); pH (venous) 7.359 (7.32-7.43)
[2023-11-15 04:10] LABS: Acetaminophen Less than 10 mcg/mL (10.0-30.0); Alcohol Less than 10.0 mg/dL (Less than 10); Magnesium 2.2 mg/dL (1.6-2.6); Salicylate Less than 8.0 mg/dL (15.0-30.0)
[2023-11-15 04:11] LABS: ALT (SGPT) 13 U/L (8-55); AST (SGOT) 24 U/L (5-34); Alkaline Phosphatase 45 U/L (40-110); Anion Gap 14 mmol/L (10-20); BUN (Urea Nitrogen) 38 mg/dL (9.8-20.1); Bilirubin, Total 0.4 mg/dL (0.2-1.2); Calc. Creatinine Clearance 0 mL/min (70-130); Carbon Dioxide 19 mmol/L (23-31); Chloride 103 mmol/L (98-107); Estimated GFR 57; Globulin 2.4 g/dL (2.4-3.5); Glucose 127 mg/dL (83-110); Potassium 4.4 mmol/L (3.5-5.1); Protein, Total 5.4 g/dL (5.8-8.1); Sodium 132 mmol/L (136-145)
[2023-11-15 04:25] LABS: Troponin I Less than 0.010 ng/mL (< 0.028)
[2023-11-15] MEDS ORDERED: Cefepime 1 GM VIAL ONE (06:50)
[2023-11-15] MEDS ORDERED: Sodium Chloride 0.9% 100 ML ONE (06:50)
[2023-11-15] MEDS ORDERED: Cefepime 2 GM VIAL ONE (06:52)
[2023-11-15] MEDS ORDERED: Dextrose 50% Abboject 50 ML SYRINGE SLOW IVP PRN (08:02)
[2023-11-15] MEDS ORDERED: Glucagon 1 MG/ML KIT IM PRN (08:02)
[2023-11-15] MEDS ORDERED: Dextrose 5% in Water 1,000 ML IV PRN (08:02)
[2023-11-15] MEDS ORDERED: Haloperidol Lactate 5 MG/ML VIAL ONE (08:22)
[2023-11-15 08:52] LABS: Free T4 (Free Thyroxine) 1.17 ng/dL (0.70-1.48)
[2023-11-15] MEDS ORDERED: Famotidine 20 MG TAB PO PRN (10:34)
[2023-11-15] MEDS: Enoxaparin 40 MG (0.4 mL) SYRINGE SC SCH (10:54)
[2023-11-15 11:07] VITALS: BMI 22.2
[2023-11-15] MEDS ORDERED: Artificial Tear Sol 15 ML BOT EA EYE PRN (11:07)
[2023-11-15] MEDS: Famotidine 20 MG TAB PO SCH (11:35)
[2023-11-15] MEDS: Lactated Ringer's 1,000 ML IV SCH (11:37)
[2023-11-15] MEDS: FLU VACC QS2023(65UP)/MF59C/PF 60 MCG/0.5 ML SYRINGE IM ONE (11:37)
[2023-11-15] MEDS: Estradiol 0.01% Vaginal Cream 42.5 gm Tube VAG SCH ×2 (13:04→20:58)
[2023-11-15] MEDS: Cefepime 1 GM in Sodium Chloride 0.9% 100 ML IVPB SCH (20:57)
[2023-11-15] MEDS: prednisoLONE 1% Ophth Susp 5 ml Bottle R EYE SCH (20:58)
[2023-11-15] MEDS: Timolol 0.5% Ophth Soln 5 ml Bottle EA EYE SCH (20:59)
[2023-11-16 06:35] LABS: #Eosinphils 0.2 thou/uL (0.0-0.7); #Monocytes 0.5 thou/uL (0.11-0.59); #Neutrophils 3.1 thou/uL (1.40-6.50); %Basophils 0.8 % (0.0-1.0); %Lymphocytes 23.8 % (21.0-51.0); %Monocytes 9.6 % (0.0-10.0); %Neutrophils 62.6 % (42.0-75.0); Hematocrit 25.8 % (36.0-47.0); Hemoglobin 9.2 g/dL (12.0-16.0); Mean Corpuscular HGB CONC 35.7 g/dL (32.0-36.0); Mean Corpuscular Hemoglobin 31.5 pg (27.0-31.0); Mean Corpuscular Volume 88.4 fl (78.0-98.0); Mean Platelet Volume 9.5 fL (7.4-10.4); Platelet Count 183 10x3/uL (130-400); RBC Distribution Width 14.8 % (11.5-14.5); Red Blood Cell (RBC) Count 2.92 mill/uL (4.20-5.40)
[2023-11-16 07:04] LABS: Anion Gap 7 mmol/L (10-20); BUN (Urea Nitrogen) 32 mg/dL (9.8-20.1); Calc. Creatinine Clearance 49 mL/min (70-130); Calcium 9.3 mg/dL (7.8-10.44); Carbon Dioxide 24 mmol/L (23-31); Chloride 108 mmol/L (98-107); Estimated GFR 77; Glucose 149 mg/dL (83-110); Potassium 4.2 mmol/L (3.5-5.1); Sodium 135 mmol/L (136-145)
[2023-11-16] MEDS: Polyethylene Glycol 3350 17 GM Packet PO SCH (09:20)
[2023-11-16] MEDS: Losartan 25 MG TAB PO SCH (09:20)
[2023-11-16] MEDS: Amlodipine 10 MG TAB PO SCH (09:20)
[2023-11-16] MEDS: Hydrochlorothiazide 25 MG TAB PO SCH (09:20)
[2023-11-16] MEDS: HumaLOG 300 UNITS/3 ML VIAL SC PRN (14:08)
[2023-11-16] MEDS: Famotidine 20 MG TAB PO SCH (22:06)
[2023-11-17 04:57] LABS: #Eosinphils 0.2 thou/uL (0.0-0.7); #Monocytes 0.6 thou/uL (0.11-0.59); #Neutrophils 3.1 thou/uL (1.40-6.50); %Basophils 0.6 % (0.0-1.0); %Eosinophils 3.6 % (0.0-10.0); %Lymphocytes 25.1 % (21.0-51.0); %Monocytes 10.7 % (0.0-10.0); %Neutrophils 59.6 % (42.0-75.0); Hematocrit 25.5 % (36.0-47.0); Hemoglobin 8.8 g/dL (12.0-16.0); Mean Corpuscular HGB CONC 34.5 g/dL (32.0-36.0); Mean Corpuscular Hemoglobin 31.3 pg (27.0-31.0); Mean Corpuscular Volume 90.7 fl (78.0-98.0); Mean Platelet Volume 9.5 fL (7.4-10.4); Platelet Count 168 10x3/uL (130-400); RBC Distribution Width 14.9 % (11.5-14.5); Red Blood Cell (RBC) Count 2.81 mill/uL (4.20-5.40); White Blood Cell (WBC) Count 5.2 10x3/uL (4.8-10.8)
[2023-11-17 05:17] LABS: Anion Gap 9 mmol/L (10-20); BUN (Urea Nitrogen) 30 mg/dL (9.8-20.1); Calc. Creatinine Clearance 51 mL/min (70-130); Calcium 9.2 mg/dL (7.8-10.44); Carbon Dioxide 23 mmol/L (23-31); Chloride 110 mmol/L (98-107); Estimated GFR 82; Glucose 118 mg/dL (83-110); Potassium 4.1 mmol/L (3.5-5.1); Sodium 138 mmol/L (136-145)
[2023-11-18 07:57] LABS: #Eosinphils 0.2 thou/uL (0.0-0.7); #Monocytes 0.5 thou/uL (0.11-0.59); #Neutrophils 2.5 thou/uL (1.40-6.50); %Basophils 0.7 % (0.0-1.0); %Eosinophils 3.4 % (0.0-10.0); %Lymphocytes 29.2 % (21.0-51.0); %Monocytes 10.9 % (0.0-10.0); %Neutrophils 55.6 % (42.0-75.0); Hemoglobin 8.6 g/dL (12.0-16.0); Mean Corpuscular HGB CONC 34.4 g/dL (32.0-36.0); Mean Corpuscular Hemoglobin 30.7 pg (27.0-31.0); Mean Corpuscular Volume 89.3 fl (78.0-98.0); Mean Platelet Volume 9.5 fL (7.4-10.4); Platelet Count 165 10x3/uL (130-400); RBC Distribution Width 14.9 % (11.5-14.5); White Blood Cell (WBC) Count 4.4 10x3/uL (4.8-10.8)
[2023-11-18 08:22] LABS: Anion Gap 9 mmol/L (10-20); BUN (Urea Nitrogen) 33 mg/dL (9.8-20.1); Calc. Creatinine Clearance 49 mL/min (70-130); Calcium 9.2 mg/dL (7.8-10.44); Carbon Dioxide 27 mmol/L (23-31); Chloride 108 mmol/L (98-107); Estimated GFR 78; Glucose 164 mg/dL (83-110); Potassium 4.1 mmol/L (3.5-5.1); Sodium 140 mmol/L (136-145)
[2023-11-18 20:05] VITALS: TEMP 98.4
[2023-11-19 06:26] LABS: #Eosinphils 0.2 thou/uL (0.0-0.7); #Monocytes 0.5 thou/uL (0.11-0.59); #Neutrophils 2.6 thou/uL (1.40-6.50); %Basophils 0.7 % (0.0-1.0); %Eosinophils 4.2 % (0.0-10.0); %Monocytes 10.1 % (0.0-10.0); %Neutrophils 56.8 % (42.0-75.0); Hematocrit 25.9 % (36.0-47.0); Mean Corpuscular HGB CONC 34.7 g/dL (32.0-36.0); Mean Corpuscular Hemoglobin 31.3 pg (27.0-31.0); Mean Corpuscular Volume 89.9 fl (78.0-98.0); Mean Platelet Volume 10.2 fL (7.4-10.4); Platelet Count 164 10x3/uL (130-400); RBC Distribution Width 14.6 % (11.5-14.5); Red Blood Cell (RBC) Count 2.88 mill/uL (4.20-5.40); White Blood Cell (WBC) Count 4.5 10x3/uL (4.8-10.8)
[2023-11-19 06:56] LABS: Anion Gap 9 mmol/L (10-20); BUN (Urea Nitrogen) 34 mg/dL (9.8-20.1); Calc. Creatinine Clearance 51 mL/min (70-130); Calcium 9.6 mg/dL (7.8-10.44); Carbon Dioxide 25 mmol/L (23-31); Chloride 109 mmol/L (98-107); Estimated GFR 81; Glucose 143 mg/dL (83-110); Sodium 139 mmol/L (136-145)
[2023-11-19 08:54] VITALS: BP 149/90
== END 2023-11-19 16:29 | DRG 690 ==
LOC: ERS 00:40 → T4-A 07:20 → OBSVTOIN 11-16 09:34
PROVIDERS: ADMIT Student in an Organized Health Care Education/Training Program; ATTEND Student in an Organized Health Care Education/Training Program
DX: N39.0 Urinary tract infection, site not specified (principal); E87.1 Hypo-osmolality and hyponatremia; E87.20 Acidosis, unspecified; F03.90 Unspecified dementia, unspecified severity, without behavioral disturbance, psychotic disturbance, mood disturbance, and anxiety; E11.9 Type 2 diabetes mellitus without complications; I10 Essential (primary) hypertension; K21.9 Gastro-esophageal reflux disease without esophagitis; F41.1 Generalized anxiety disorder; R19.7 Diarrhea, unspecified; D64.9 Anemia, unspecified; N81.10 Cystocele, unspecified; N81.6 Rectocele; I25.10 Atherosclerotic heart disease of native coronary artery without angina pectoris; Z98.890 Other specified postprocedural states; Z79.899 Other long term (current) drug therapy; Z88.8 Allergy status to other drugs, medicaments and biological substances; Z88.1 Allergy status to other antibiotic agents; Z91.040 Latex allergy status; Z98.49 Cataract extraction status, unspecified eye; Z90.710 Acquired absence of both cervix and uterus
CPT/HCPCS: 36415; 36416; 70450; 71045; 72125; 80048; 80053; 80306; 80307; 81001; 82805; 83605; 83735; 84439; 84443; 84481; 84484; 85025; 87040; 87077; 87086; 87186; 96365; 96372; 96376; G0378; J0692; J1630; J1650; J1815; J3490; J7120